=== PATIENT | female | born 1980 | race Two or more races ===

== ENCOUNTER 2022-07-06 05:21 | Emergency (ER) | payer OTHER, SELFPAY ==
[2022-07-06] VITALS (40 sets, daily range): BP systolic 115–155; BP diastolic 74–104; PULSE 55–81; RESP 12–21; TEMP 36.4; O2SAT 98–100
--- NOTE | ~2022-07-06 | XR_ITS ---
EXAMINATION: XR chest 1V portable DATE: 07/06/2022 06:07 INDICATION: Chest pain and midline back pain TECHNIQUE: frontal view of the chest was obtained. COMPARISON: None FINDINGS: The lungs are clear with no focal airspace opacities, pulmonary edema, pleural effusion or pneumothor ax. The cardiomediastinal silhouette is normal. Visualized bones and soft tissues are unremarkable. IMPRESSION: 1. Normal chest radiograph. Reviewed, dictated and finalized at location A. IMPRESSION: 1. Normal chest radiograph.
--- NOTE | 2022-07-06 05:22 | ECG_ITS ---
Measurements Intervals [place] Rate: 62 P: -24 HI: 128 QRS: 38 QRSD: 85 T: -58 QT: 420 QTc: 429 Interpretive Statements SINUS RHYTHM NONSPECIFIC T-WAVE ABNORMALITY ABNORMAL ECG NO PREVIOUS ECG AVAILABLE FOR COMPARISON Electronically Signed On 07-06-2022 16:57:33 CDT by Rah Strickland M.D.
--- NOTE | 2022-07-06 05:58 | ED.GENADULT ---
HPI - General Adult General Chief complaint: Back Pain/Injury Stated complaint: back pain arm pain Time Seen by Provider: 07/06/22 05:34 History of Present Illness HPI narrative: Is a 42-year-old female that presents the emergency department with chief complaint of. Patient reports that this evening she had sudden onset of pain just medial to her right scapula the patient states is very sharp pain reports it radiates to her right shoulder and down her right arm. Patient states that it started on ripping type pain reports its sharp reports that is worse with movement and improved with rest. The patient states she had an episode similar to this about a year ago and was told that it was reflux. Patient reports she has prior history of hypertension. Patient reports no weakness in the arms or legs denies diaphoresis denies shortness of breath. Related Data Home Medications Medication Instructions Recorded Confirmed lisinopril 10 mg tablet 10 mg PO DAILY 07/06/22 07/06/22 Allergies Allergy/AdvReac Type Severity Reaction Status Date / Time No Known Allergies Allergy Verified 07/06/22 05:30 Review of Systems Review of Systems: A 10 system review of systems was completed on the patient and is negative except for what is stated in the HPI. Nursing and ancillary documentation was reviewed. PMFSH Comments Patient reports history of hypertension and an episode of reflux Social history the patient denies illicit drug use Exam Narrative: GENERAL: Well-appearing, well-nourished, and in moderate pain distress. HEAD: Normocephalic, atraumatic. EYES: PERRLA and EOMI. ENT: Nares clear, no rhinorrhea or epistaxis. Mucous membranes moist. NECK: Supple. CHEST: Clear to auscultation. No respiratory distress. Back: There is tenderness to the right upper back medial to the right scapula. HEART: Regular rate and rhythm. No murmur heard. Normal peripheral pulses. ABDOMEN: Soft, nontender, nondistended, normal active bowel sounds. EXTREMITIES: Normal range of motion. No edema. SKIN: Warm, dry, no rash. NEURO: No focal deficits. Alert and oriented x3. PSYCH: Normal mood and affect. Course Course Emergency Course: EKG is sinus rhythm with a rate of [address] elevation or ST depression Vital Signs Vital signs: Vital Signs Temperature 97.5 F L 07/06/22 05:24 Pulse Rate 64 07/06/22 05:24 Respiratory Rate 12 07/06/22 05:24 Blood Pressure 155/92 H 07/06/22 05:24 Pulse Oximetry 100 07/06/22 05:24 Oxygen Delivery Room Air 07/06/22 05:24 Temperature 97.5 F L 07/06/22 05:24 Pulse Rate 61 07/06/22 12:01 Respiratory Rate 17 07/06/22 12:01 Blood Pressure 132/88 07/06/22 12:00 Pulse Oximetry 98 07/06/22 12:00 Oxygen Delivery Room Air 07/06/22 05:24 Medical Decision Making Vital Signs Vital Signs: Vital Signs Temperature 97.5 F L 07/06/22 05:24 Pulse Rate 64 07/06/22 05:24 Respiratory Rate 12 07/06/22 05:24 Blood Pressure 155/92 H 07/06/22 05:24 Pulse Oximetry 100 07/06/22 05:24 Oxygen Delivery Room Air 07/06/22 05:24 Temperature 97.5 F L 07/06/22 05:24 Pulse Rate 61 07/06/22 12:01 Respiratory Rate 17 07/06/22 12:01 Blood Pressure 132/88 07/06/22 12:00 Pulse Oximetry 98 07/06/22 12:00 Oxygen Delivery Room Air 07/06/22 05:24 Lab Data Result diagrams: 07/06/22 06:39 07/06/22 06:39 Labs: Lab Results 07/06/22 07/06/22 07/06/22 Range/Units 06:39 06:39 06:39 WBC 8.2 (4.5-10.0) K/mm3 RBC 4.22 (4.2-5.4) M/mm3 Hgb 7.1 L (12.0-15.0) g/dL Hct 27.2 L (37.0-47.0) % MCV 64.5 L (80-100) fl MCH 16.8 L (26-34) pg MCHC 26.1 L (32-36) g/dl RDW 21.3 H (11.5-14.5) % Plt Count 316 (150-375) k/mm3 MPV 10.7 H (7.4-10.4) fl Immature Gran % (Auto) 0.2 (0-0.5) % Neut % (Auto) 64.9 (45.5-73.1) % Lymph % (Auto) 26.9 (18.3-44.2) % [place] % (Auto) 6.4 (2.6-8.
[2022-07-06] MEDS: BELLADONNA ALK/PHENOB ELIX 10 ML, MAG HYDROX/ALUMINUM HYD/SIMETH 30 ML, LIDOCAINE HCL 2... PO (06:24)
[2022-07-06] MEDS: ONDANSETRON INJ 4 MG/2 ML VIAL IV PUSH (06:25)
[2022-07-06] MEDS: ASPIRIN 81 MG CHEWABLE TABLET 324 MG PO (06:25)
--- NOTE | 2022-07-06 06:25 | PC.NURSE ---
Patient states her pain is a little better and wants to hold off on the morphine at this time.
[2022-07-06 06:49] LABS: Basophils Absolute Auto 0.1 K/mm3 (0.0-0.1); Basophils Percent Auto 0.6 % (0.2-1.2); Eosinophils Absolute Auto 0.1 K/mm3 (0-0.3); Hematocrit 27.2 % (37.0-47.0); Hemoglobin 7.1 g/dL (12.0-15.0); Immature Granulocyte Absolute 0.02 K/mm3 (0.00-0.031); Immature Granulocyte Percent A 0.2 % (0-0.5); Immature Platelet Fraction Pct 8.7 % (0.9-11.2); Lymphocytes Absolute Auto 2.21 K/mm3 (0.9-3.2); Lymphocytes Percent Auto 26.9 % (18.3-44.2); Mean Corpuscular HGB Conc 26.1 g/dl (32-36); Mean Corpuscular Hemoglobin 16.8 pg (26-34); Mean Corpuscular Volume 64.5 fl (80-100); Mean Platelet Volume 10.7 fl (7.4-10.4); Monocytes Absolute Auto 0.5 K/mm3 (0.1-0.6); Monocytes Percent Auto 6.4 % (2.6-8.5); Neutrophils Absolute Auto 5.3 K/mm3 (1.3-6.7); Neutrophils Percent Auto 64.9 % (45.5-73.1); Platelet Count Result 316 k/mm3 (150-375); Red Blood Count 4.22 M/mm3 (4.2-5.4); Red Cell Distribution Width 21.3 % (11.5-14.5); White Blood Count 8.2 K/mm3 (4.5-10.0)
[2022-07-06 07:00] LABS: Partial Thromboplastin Time 22.3 SECONDS (22.3-36.8); Prothrombin Time 12.8 Seconds (11.1-14.7)
[2022-07-06 07:01] LABS: Alanine Aminotransferase 19 U/L (6-35); Albumin Level 4.6 g/dL (3.5-5.1); Alkaline Phosphatase 57 U/L (38-126); Anion Gap 5 mmol/L (8-16); Aspartate Amino Transferase 41 U/L (14-36); Bilirubin,Total 0.4 mg/dL (0.2-1.3); Blood Urea Nitrogen 8 mg/dL (7-17); Calcium 9.3 mg/dL (8.4-10.2); Carbon Dioxide 22 mmol/L (22-30); Chloride 105 mmol/L (98-107); Estimated CRCL calculation 90 ml/min; Estimated Glomerular Filt Rate > 60; Glucose 100 mg/dL (65-110); Lipase 63 U/L (23-300); Potassium 4.5 mmol/L (3.4-5.0); Sodium 132 mmol/L (137-145)
[2022-07-06 07:05] LABS: NT Pro B Type Natriuretic Pept 224 pg/mL (5-100)
[2022-07-06 07:12] LABS: Troponin I < 0.012 ng/mL (0.000-0.034)
[2022-07-06 07:16] LABS: D Dimer < 0.27 ug/mL (<0.48)
[2022-07-06 07:20] LABS: Platelet Estimate Adequate (Adequate)
[2022-07-06 07:21] LABS: Anisocytosis 1+ (NORMAL); Hypochromasia 2+ (NORMAL); Ovalocytes 1+ (NORMAL); Poikilocytosis 1+ (NORMAL)
[2022-07-06 08:58] LABS: Troponin I < 0.012 ng/mL (0.000-0.034)
[2022-07-06] MEDS: fentaNYL CITRATE INJ (*CRX) 100 MCG/2 ML VIAL 50 MCG IV PUSH (10:08)
[2022-07-06] MEDS: CYCLOBENZAPRINE HCL 10 MG TABLET PO (10:08)
--- NOTE | 2022-07-06 10:51 | ECG_ITS ---
Measurements Intervals [place] Rate: 58 P: -25 [place]: 133 QRS: 31 QRSD: 89 T: -15 QT: 436 QTc: 429 Interpretive Statements SINUS BRADYCARDIA NONSPECIFIC T-WAVE ABNORMALITY COMPARED TO ECG 07/06/2022 05:22:44 NO SIGNIFICANT CHANGE Electronically Signed On 07-06-2022 17:06:57 CDT by Rah Strickland M.D.
[2022-07-06 12:36] LABS: Troponin I < 0.012 ng/mL (0.000-0.034)
== END 2022-07-06 12:41 | disposition home or self-care (01) ==
PROVIDERS: Emergency Medicine; Emergency Provider Emergency Medicine; PCP Emergency Medicine
DX: S29.012A Strain of muscle and tendon of back wall of thorax, initial encounter (principal); I10 Essential (primary) hypertension; R94.31 Abnormal electrocardiogram [ECG] [EKG]; X58.XXXA Exposure to other specified factors, initial encounter
CPT/HCPCS: 36415; 71045; 80053; 83690; 83880; 84484; 85025; 85055; 85380; 85610; 85730; 93005; 96374; 96375; 99284; A9270; J2405; J3010

== ENCOUNTER 2022-07-24 15:18 | Observation (INO) | payer OTHER, SELFPAY ==
[2022-07-24] VITALS (19 sets, daily range): BP systolic 139–175; BP diastolic 80–114; PULSE 57–91; RESP 12–20; TEMP 36.1–37.1; O2SAT 100
[2022-07-24 15:38] LABS: Basophils Absolute Auto 0.1 K/mm3 (0.0-0.1); Basophils Percent Auto 1.1 % (0.2-1.2); Eosinophils Absolute Auto 0.1 K/mm3 (0-0.3); Hematocrit 25.4 % (37.0-47.0); Immature Granulocyte Absolute 0.02 K/mm3 (0.00-0.031); Immature Granulocyte Percent A 0.3 % (0-0.5); Lymphocytes Absolute Auto 2.06 K/mm3 (0.9-3.2); Mean Corpuscular HGB Conc 25.2 g/dl (32-36); Mean Corpuscular Hemoglobin 16.9 pg (26-34); Mean Corpuscular Volume 67.2 fl (80-100); Mean Platelet Volume 9.9 fl (7.4-10.4); Monocytes Absolute Auto 0.3 K/mm3 (0.1-0.6); Monocytes Percent Auto 5.3 % (2.6-8.5); Neutrophils Absolute Auto 3.7 K/mm3 (1.3-6.7); Neutrophils Percent Auto 59.3 % (45.5-73.1); Platelet Count Result 395 k/mm3 (150-375); Red Blood Count 3.78 M/mm3 (4.2-5.4); Red Cell Distribution Width 20.7 % (11.5-14.5); White Blood Count 6.2 K/mm3 (4.5-10.0)
[2022-07-24 15:49] LABS: Partial Thromboplastin Time 28.8 SECONDS (22.3-36.8)
[2022-07-24 15:50] LABS: Alanine Aminotransferase 19 U/L (6-35); Albumin Level 4.3 g/dL (3.5-5.1); Alkaline Phosphatase 56 U/L (38-126); Anion Gap 10 mmol/L (8-16); Aspartate Amino Transferase 25 U/L (14-36); Bilirubin,Total 0.1 mg/dL (0.2-1.3); Blood Urea Nitrogen 7 mg/dL (7-17); Calcium 9.2 mg/dL (8.4-10.2); Carbon Dioxide 24 mmol/L (22-30); Chloride 105 mmol/L (98-107); Estimated CRCL calculation 90 ml/min; Estimated Glomerular Filt Rate > 60; Glucose 106 mg/dL (65-110); Potassium 3.6 mmol/L (3.4-5.0); Sodium 139 mmol/L (137-145)
[2022-07-24 16:13] LABS: Hemoglobin 6.4 g/dL (12.0-15.0)
--- NOTE | 2022-07-24 16:19 | ED.RECABL ---
HPI - Recheck/Abnormal Lab/Rx General Chief Complaint: Recheck/Abnormal Lab/Rx Stated Complaint: low hemoglobin Time Seen by Provider: 07/24/22 15:40 History of Present Illness HPI narrative: 42-year-old female presents to the emergency room today for evaluation for abnormal blood work. She has a low hemoglobin and hematocrit. She was seen here earlier in the week for right shoulder pain and had blood work done. Her hemoglobin on that day was 7.1. It has dropped down to 6.4. Patient reports that the pain she was having in her shoulder has resolved. She denies having any pain today. She denies having any weakness or dizziness. She does admit to feeling tired and she does occasionally feel short of breath with exertion. She has not had any other recent CBCs to compare to. She denies having any blood in her stool or urine. She still has menstrual cycles but says that they are normal flow and last about 5 days. Related Data Home Medications Medication Instructions Recorded Confirmed lisinopril 10 mg tablet 10 mg PO DAILY 07/06/22 07/06/22 Allergies Allergy/AdvReac Type Severity Reaction Status Date / Time No Known Allergies Allergy Verified 07/24/22 16:00 Review of Systems Review of Systems: CONSTITUTIONAL: Denies fever, chills, or sweats. reports feeling fatigued EYES: Denies visual changes, redness, or discharge. ENT: Denies rhinorrhea, congestion, sore throat, or otalgia. CARDIOVASCULAR: Denies chest pain, palpitations, or edema. RESPIRATORY: Denies cough, occasional mild shortness of breath with exertion GASTROINTESTINAL: Denies abdominal pain, nausea, vomiting, or diarrhea. reports intermittent problems with indigestion GENITOURINARY: Denies dysuria or hematuria. SKIN: Denies rash or itching. MUSCULOSKELETAL: Denies back pain, joint pain, or myalgia. NEUROLOGIC: Denies headache, numbness, dizziness, or weakness. PSYCHIATRIC: Denies anxiety or depression. [facility] Past Medical History Medical History (Updated 07/24/22 @ 17:30 by Yvonne Salmeron APRN) Hypertension Thyroid disease Surgical History Surgical History No pertinent past surgical history Social History Social History Social History: s son Exam Narrative: GENERAL: Well-appearing, well-nourished, and in no acute distress. HEAD: Normocephalic, atraumatic. EYES: PERRLA and EOMI. ENT: Nares clear, no rhinorrhea or epistaxis. Mucous membranes moist. Oropharynx without tonsillar hypertrophy exudate or other lesions. Bilateral TMs pearly menendez nonbulging NECK: Supple. No adenopathy or masses. No carotid bruits or JVD CHEST: Clear to auscultation. No respiratory distress. No wheezes rales or rhonchi HEART: Regular rate and rhythm. No murmur heard. Normal peripheral pulses. ABDOMEN: Soft, nontender, nondistended, normal active bowel sounds. EXTREMITIES: Normal range of motion. No edema. SKIN: Warm, dry, no rash. NEURO: No focal deficits. Alert and oriented x3. PSYCH: Normal mood and affect. Rectum: no blood noted with exam, no stool on glove to test for occult blood Course Course Emergency Course: 1709 Discussed with Miladys Fabian STRUCTURAL ENGINEER, accepting patient for observation admission. Will plan to consult hematology. Vital Signs Vital signs: Vital Signs Temperature 36.9 C 07/24/22 15:19 Pulse Rate 91 07/24/22 15:19 Respiratory Rate 16 07/24/22 15:19 Blood Pressure 139/80 07/24/22 15:19 Pulse Oximetry 100 07/24/22 15:19 Oxygen Delivery Room Air 07/24/22 15:19 Temperature 36.9 C 07/24/22 15:19 Pulse Rate 91 07/24/22 15:19 Respiratory Rate 16 07/24/22 15:19 Blood Pressure 139/80 07/24/22 15:19 Pulse Oximetry 100 07/24/22 15:19 Oxygen Delivery Room Air 07/24/22 15:19 MDM - Recheck/Abnormal Lab/Rx Lab Data Attestation: I reviewed the patient's lab results. Result diag
[2022-07-24 16:29] LABS: Hypochromasia 2+ (NORMAL); Ovalocytes 1+ (NORMAL); Poikilocytosis 1+ (NORMAL)
--- NOTE | 2022-07-24 17:16 | PM.IMHP ---
H&P: HPI History of Present Illness Date/Time: 07/24/22 17:16 Chief Complaint: Low hemoglobin Narrative: This is a 42-year-old female patient who came in to the emergency room for evaluation of abnormal blood work. She was told that she has a low H&H. She was here earlier in the week for right shoulder pain and had blood work done. Her hemoglobin on that day was 7.1. It dropped down to 6.4 today. The patient has been on ibuprofen and her right shoulder pain has resolved. She denies any weakness or dizziness. She does admit to feeling tired on occasion. And H occasionally short of breath with exertion. She denies having any blood loss in her stool or urine. The patient is having her menstrual cycle now but says that she is having a normal flow and that the last about 5 days. She has a history of hypertension and her blood pressure is high today 175/100. I am unsure if she took her medication today. The is at the bedside answering questions for her . The patient is being admitted for observation status on the date of service of 07/24/2022. Review of Systems Review of Systems: see hpi All systems reviewed & are unremarkable except as noted in HPI and below Constitutional: Constitutional: Reports as per HPI and Reports no additional constitutional complaints Eyes: Eyes: Reports as per HPI and Reports no additional eye complaints ENT: Reports system reviewed and no additional complaints, except as documented and Reports Normal hearing present Cardiovascular: Cardiovascular: Reports no additional cardiovascular complaints Respiratory: Respiratory: Reports no additional respiratory complaints and Reports no additional respiratory complaints Gastrointestinal: Gastrointestinal: Reports as per HPI and Reports no additional gastrointestinal complaints Musculoskeletal: Musculoskeletal: Reports no additional musculoskeletal complaints Integumentary/Breasts: Skin/Breast: Reports system reviewed and no additional complaints, except as docu and Reports as per HPI Neurologic: Reports system reviewed and no additional complaints, except as documented, Reports as per HPI and Reports Normal hearing present Psychiatric: Psychiatric: Reports no additional psychiatric complaints and Reports as per HPI Endocrine: Endocrine: Reports no additional endocrine complaints Hematologic/Lymphatic: Hematologic/Lymphatic: Reports no additional hematologic/lymphatic complaints Allergic/Immunologic: Allergic/Immunologic: Reports no additional allergic/immunologic complaints PMFSH Past Medical History Medical History Hypertension Thyroid disease Surgical History Surgical History No pertinent past surgical history Family History Family History (Updated 07/24/22 @ 19:26 by Miladys Fabian NP) Unknown No problems noted. Social History Social History (Updated 07/24/22 @ 19:27 by Miladys Fabian NP) Social History: The patient is and has 2 sons. 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 She does not use tobacco marijuana alcohol or illicit drugs. Code status full code Smoking status: Never smoker Alcohol intake: never Substance use: current Meds Home Medications and Allergies Home Medications Medication Instructions Recorded Confirmed Type ibuprofen 800 mg tablet 800 mg PO TID #30 tabs 07/06/22 Rx lisinopril 10 mg tablet 10 mg PO DAILY 07/06/22 07/06/22 History Allergies Allergy/AdvReac Type Severity Reaction Status Date / Time No Known Allergies Allergy Verified 07/24/22 16:00 Vital Signs Vital Signs - 24 hr 07/24/22 15:19 Temperature 36.9 C Pulse Rate 91 Respiratory Rate 16 Blood Pressure 139/80 Pulse Oximetry 100 Oxygen Delivery Room Air Exam Const: General: cooperative, healthy appearing, comfortable, no ac
[2022-07-24 17:34] LABS: Lactate Dehydrogenase 181 U/L (120-246)
[2022-07-24 17:35] LABS: Bilirubin,Total 0.2 mg/dL (0.2-1.3)
[2022-07-24 17:37] LABS: Immature Reticulocyte Fraction 13.9 % (3.0-15.9); Reticulocyte Hemoglobin Conten 14.7 pg (28.2-35.7); Reticulocyte Percent 1.15 % (0.7-4.3); Reticulocytes Absolute 0.04 B/L (32.2-175.7)
[2022-07-24 17:42] LABS: Transferrin 328 mg/dL (206-381)
[2022-07-24 17:57] LABS: Iron 16 ug/dL (37-170)
[2022-07-24 18:06] LABS: Percent Iron Saturation 4 % (20-50)
[2022-07-24] MEDS: SODIUM CHLORIDE 0.9% IV 250 ML 30 ML IV CONT (18:09)
[2022-07-24 18:18] LABS: SARS-CoV-2 RNA PCR Negative
[2022-07-24 18:33] LABS: Ferritin 2.52 ng/mL (6.24-137)
[2022-07-24 18:42] LABS: Folic Acid 13.7 ng/mL (2.76->20)
[2022-07-24 18:59] LABS: Free T4 Free Thyroxine Reflex 0.85 ng/dL (0.78-2.19)
--- NOTE | 2022-07-24 19:43 | PC.NURSE ---
Attempted to call report, bed not available yet.will call when bed is ready.
[2022-07-24 19:53] LABS: Total Triiodothyronine (T3) 1.06 NG/ML (0.97-1.69)
--- NOTE | 2022-07-24 21:45 | ADMGEN ---
This patient, Jude Calderon, was admitted to [facility] Surg Room 330-01. Patient/family oriented to hospital policies and general routines including ID bracelet, bed and alarms, visiting hours, pain management, procedures, bathroom and other care routines, personal items, smoking policy, room service/diet, and visiting hours. Information on how to activate the Rapid Response Team has been discussed. Patient/Family are encouraged to report perceived risks to care and to ask questions if they do not understand what they are told or what they should do.
[2022-07-24] MEDS: TUBING, BLOOD PLUM PUMP TUBING 1 EACH XX (22:00)
[2022-07-24] MEDS: hydrALAZINE HCL 20 MG/ML VIAL 10 MG IV PUSH (23:06)
[2022-07-25 00:03] VITALS: BP 147/84; PULSE 60; RESP 15; TEMP 36.7; O2SAT 100
[2022-07-25 01:03] VITALS: BP 156/99; PULSE 77; RESP 16; TEMP 36.6; O2SAT 100
[2022-07-25] MEDS: ACETAMINOPHEN 325 MG TABLET 650 MG PO ×2 (01:23→11:26)
[2022-07-25 01:24] VITALS: BP 150/89; PULSE 70; RESP 16; TEMP 36.7; O2SAT 100
[2022-07-25 06:16] LABS: Basophils Absolute Auto 0.1 K/mm3 (0.0-0.1); Basophils Percent Auto 1.1 % (0.2-1.2); Eosinophils Absolute Auto 0.1 K/mm3 (0-0.3); Eosinophils Percent Auto 1.4 % (0-4.4); Hematocrit 34.7 % (37.0-47.0); Hemoglobin 9.5 g/dL (12.0-15.0); Immature Granulocyte Absolute 0.01 K/mm3 (0.00-0.031); Immature Granulocyte Percent A 0.1 % (0-0.5); Immature Platelet Fraction Pct 7.3 % (0.9-11.2); Lymphocytes Absolute Auto 3.03 K/mm3 (0.9-3.2); Mean Corpuscular HGB Conc 27.4 g/dl (32-36); Mean Corpuscular Hemoglobin 19.9 pg (26-34); Mean Corpuscular Volume 72.6 fl (80-100); Mean Platelet Volume 10.4 fl (7.4-10.4); Monocytes Absolute Auto 0.5 K/mm3 (0.1-0.6); Monocytes Percent Auto 6.6 % (2.6-8.5); Neutrophils Absolute Auto 3.5 K/mm3 (1.3-6.7); Neutrophils Percent Auto 48.8 % (45.5-73.1); Platelet Count Result 366 k/mm3 (150-375); Red Blood Count 4.78 M/mm3 (4.2-5.4); Red Cell Distribution Width 24.4 % (11.5-14.5); White Blood Count 7.2 K/mm3 (4.5-10.0)
[2022-07-25 06:24] LABS: Lactic Acid Reflex 1.3 mmol/L (0.7-2.0)
[2022-07-25 06:27] LABS: Alanine Aminotransferase 18 U/L (6-35); Albumin Level 3.9 g/dL (3.5-5.1); Alkaline Phosphatase 49 U/L (38-126); Anion Gap 9 mmol/L (8-16); Aspartate Amino Transferase 27 U/L (14-36); Bilirubin,Total 0.4 mg/dL (0.2-1.3); Blood Urea Nitrogen 6 mg/dL (7-17); Calcium 9.1 mg/dL (8.4-10.2); Carbon Dioxide 22 mmol/L (22-30); Chloride 106 mmol/L (98-107); Estimated CRCL calculation 104 ml/min; Estimated Glomerular Filt Rate > 60; Glucose 92 mg/dL (65-110); Magnesium 2.1 mg/dL (1.6-2.3); Potassium 3.4 mmol/L (3.4-5.0); Sodium 137 mmol/L (137-145)
[2022-07-25 07:27] LABS: Anisocytosis 1+ (NORMAL); Hypochromasia 1+ (NORMAL); Platelet Estimate Adequate (Adequate); Poikilocytosis 1+ (NORMAL)
[2022-07-25] MEDS: lisinopriL 10 MG TABLET PO (08:42)
[2022-07-25] MEDS: THYROID 60 MG TABLET PO (08:42)
[2022-07-25 10:16] VITALS: O2SAT 98
[2022-07-25] MEDS: hydrALAZINE HCL 20 MG/ML VIAL 10 MG IV PUSH (11:26)
[2022-07-25 16:29] VITALS: BP 130/79; PULSE 71; RESP 18; TEMP 36.3; O2SAT 100
--- NOTE | 2022-07-25 16:48 | PM.IMPN ---
Progress Note: A&P Assessment and Plan (1) Thyroid disease: Code(s): E07.9 - Disorder of thyroid, unspecified Status: Acute Assessment and Plan: Continue home thyroid medication, TSH was slightly high, free T4 and free T3 pending (2) Hypertension: Code(s): I10 - Essential (primary) hypertension Status: Acute Assessment and Plan: Stable on lisinopril (3) Iron deficiency anemia: Code(s): D50.9 - Iron deficiency anemia, unspecified Status: Acute Assessment and Plan: Patient was transfused 2 units of packed red blood cells in the ER. Hemoglobin went from 6.4 up to 9.5. Fecal occult blood test pending, appreciate Hematology consultation, iron severely low, would consider IV iron infusions if okay with Hematology. Suspected etiology is dietary deficiency as patient is a vegetarian. Will start oral ferrous sulfate, would recommend patient take every other day for life. Patient may also benefit from an outpatient gynecology workup for possible fibroids if she continues to experience menorrhagia. Plan DVT prophylaxis with SCDs GI prophylaxis with PPI Code status full code Subjective Date/time seen: 07/25/22 16:48 Interval history: Patient states she was diagnosed with anemia several years ago and is a vegetarian. She was told she needed to take vitamins, however, these give her cramps in her legs so she discontinued those. Up until a few months ago, she states she had very heavy periods but these have now alleviated to 3-4 days of a much spiral runner flow than she had previously. No overnight events noted. No chest pain or shortness of breath. No nausea, vomiting or diarrhea. No fevers or chills. Review of Systems Review of Systems: 12 point review of systems was assessed and was negative except as noted in the HPI Exam Narrative: General: No acute distress, alert and oriented per baseline HEENT: Atraumatic, normocephalic, mucous membranes moist CV: Regular rate and rhythm, S1, S2 Lungs: Clear to auscultation bilaterally, no rales or crackles noted, no wheezes, good air entry Abdomen: Soft, nontender, nondistended Extremities: Normal to inspection Skin: No rashes noted, no lesions or wounds seen Psych: Euthymic, normal affect Objective Data Vital Signs Vital Signs: Vital Signs - 24 hr 07/24/22 18:26 07/24/22 18:45 07/24/22 18:23 Temperature 98.6 F 98.7 F Pulse Rate 66 70 69 Respiratory Rate 15 15 16 Blood Pressure 162/113 H 175/100 H 162/113 H Pulse Oximetry 100 100 100 Oxygen Delivery 07/24/22 18:46 07/24/22 19:23 07/24/22 19:45 Temperature 98.1 F Pulse Rate 69 84 72 Respiratory Rate 12 20 18 Blood Pressure 175/100 H 156/96 H 151/100 H Pulse Oximetry 100 100 100 Oxygen Delivery 07/24/22 20:23 07/24/22 20:45 07/24/22 21:45 Temperature 98.5 F 97.8 F Pulse Rate 85 70 60 Respiratory Rate 18 16 17 Blood Pressure 174/114 H 165/103 H 152/90 H Pulse Oximetry 100 100 100 Oxygen Delivery 07/24/22 22:02 07/24/22 22:47 07/24/22 22:58 Temperature 97.8 F 97 F L Pulse Rate 57 L 59 L Respiratory Rate 18 18 Blood Pressure 159/96 H 148/99 H Pulse Oximetry 100 100 Oxygen Delivery Room Air 07/24/22 23:03 07/24/22 22:00 07/25/22 00:03 Temperature 97.8 F 97 F L 98.1 F Pulse Rate 63 61 60 Respiratory Rate 17 17 15 Blood Pressure 156/96 H 160/96 H 147/84 H Pulse Oximetry 100 100 100 Oxygen Delivery 07/25/22 01:03 07/25/22 01:24 07/25/22 10:16 Temperature 97.8 F 98.1 F Pulse Rate 77 70 Respiratory Rate 16 16 Blood Pressure 156/99 H 150/89 H Pulse Oximetry 100 100 98 Oxygen Delivery Room Air 07/25/22 08:40 07/25/22 16:29 Temperature 97.3 F L Pulse Rate 71 Respiratory Rate 18 Blood Pressure 130/79 Pulse Oximetry 100 Oxygen Delivery Room Air Intake/Output Intake/Output: Intake & Output 07/22/22 07/23/22 07/24/22 07/25/22 23:59 23:59 23:59 23:59 Intake Total 350 1340 Output To
[2022-07-25 22:00] VITALS: BP 140/79; PULSE 68; RESP 17; TEMP 36.2; O2SAT 97
[2022-07-26 06:00] VITALS: BP 145/85; PULSE 66; RESP 18; TEMP 36.2; O2SAT 98
[2022-07-26] MEDS: lisinopriL 10 MG TABLET PO ×2 (09:16→17:02)
[2022-07-26] MEDS: FERROUS SULFATE 324 MG TABLET PO (09:16)
[2022-07-26] MEDS: THYROID 60 MG TABLET PO (09:16)
[2022-07-26 10:42] LABS: Basophils Percent Auto 0.7 % (0.2-1.2); Eosinophils Absolute Auto 0.1 K/mm3 (0-0.3); Eosinophils Percent Auto 1.5 % (0-4.4); Hematocrit 35.3 % (37.0-47.0); Hemoglobin 9.8 g/dL (12.0-15.0); Immature Granulocyte Absolute 0.01 K/mm3 (0.00-0.031); Immature Granulocyte Percent A 0.2 % (0-0.5); Lymphocytes Absolute Auto 2.06 K/mm3 (0.9-3.2); Lymphocytes Percent Auto 34.5 % (18.3-44.2); Mean Corpuscular HGB Conc 27.8 g/dl (32-36); Mean Corpuscular Hemoglobin 19.8 pg (26-34); Mean Corpuscular Volume 71.3 fl (80-100); Mean Platelet Volume 9.9 fl (7.4-10.4); Monocytes Absolute Auto 0.4 K/mm3 (0.1-0.6); Monocytes Percent Auto 6.2 % (2.6-8.5); Neutrophils Absolute Auto 3.4 K/mm3 (1.3-6.7); Neutrophils Percent Auto 56.9 % (45.5-73.1); Platelet Count Result 352 k/mm3 (150-375); Red Blood Count 4.95 M/mm3 (4.2-5.4); Red Cell Distribution Width 24.5 % (11.5-14.5)
[2022-07-26 11:01] LABS: Alanine Aminotransferase 18 U/L (6-35); Albumin Level 4.2 g/dL (3.5-5.1); Alkaline Phosphatase 48 U/L (38-126); Anion Gap 13 mmol/L (8-16); Aspartate Amino Transferase 24 U/L (14-36); Bilirubin,Total 0.5 mg/dL (0.2-1.3); Blood Urea Nitrogen 6 mg/dL (7-17); Calcium 9.1 mg/dL (8.4-10.2); Carbon Dioxide 22 mmol/L (22-30); Chloride 104 mmol/L (98-107); Estimated CRCL calculation 90 ml/min; Estimated Glomerular Filt Rate > 60; Glucose 89 mg/dL (65-110); Potassium 3.4 mmol/L (3.4-5.0); Sodium 139 mmol/L (137-145)
[2022-07-26] MEDS: SENNA/DOCUSATE SODIUM TABLET 1 TAB PO (13:39)
[2022-07-26 13:49] VITALS: BP 166/91; PULSE 79; RESP 20; TEMP 36.8; O2SAT 100
--- NOTE | 2022-07-26 17:02 | PM.IMPN ---
Progress Note: A&P Assessment and Plan (1) Thyroid disease: Code(s): E07.9 - Disorder of thyroid, unspecified Status: Acute Assessment and Plan: Continue home thyroid medication, TSH was slightly high, both free T4 and free T3 were within normal limits, continue current dose, recheck in 4-6 weeks (2) Hypertension: Code(s): I10 - Essential (primary) hypertension Status: Acute Assessment and Plan: Uncontrolled on lisinopril 10 mg, increase to 20 mg daily (3) Iron deficiency anemia: Code(s): D50.9 - Iron deficiency anemia, unspecified Status: Acute Assessment and Plan: Patient was transfused 2 units of packed red blood cells in the ER. Hemoglobin went from 6.4 up to 9.5. Fecal occult blood test pending, appreciate Hematology consultation, iron severely low, would consider IV iron infusions if okay with Hematology. Suspected etiology is dietary deficiency as patient is a vegetarian. Will start oral ferrous sulfate, would recommend patient take every other day for life. Patient may also benefit from an outpatient gynecology workup for possible fibroids if she continues to experience menorrhagia. 07/26: Hemoglobin stable at 9.8, awaiting fecal occult blood test and Hematology consult tomorrow Plan DVT prophylaxis with SCDs GI prophylaxis with PPI Code status full code Subjective Date/time seen: 07/26/22 17:02 Interval history: Patient has not had a bowel movement in a few days. She does admit to feeling generally weak when she tries to stand up. No overnight events noted. No chest pain or shortness of breath. No nausea, vomiting or diarrhea. No fevers or chills. Review of Systems Review of Systems: All systems reviewed & are unremarkable except as noted in HPI and below Exam Narrative: General: No acute distress, alert and oriented per baseline HEENT: Atraumatic, normocephalic, mucous membranes moist CV: Regular rate and rhythm, S1, S2 Lungs: Clear to auscultation bilaterally, no rales or crackles noted, no wheezes, good air entry Abdomen: Soft, nontender, nondistended Extremities: Normal to inspection Skin: No rashes noted, no lesions or wounds seen Psych: Euthymic, normal affect Objective Data Vital Signs Vital Signs: Vital Signs - 24 hr 07/25/22 20:00 07/25/22 22:00 07/26/22 06:00 Temperature 97.2 F L 97.2 F L Pulse Rate 68 66 Respiratory Rate 17 18 Blood Pressure 140/79 145/85 H Pulse Oximetry 97 98 Oxygen Delivery Room Air 07/26/22 09:15 07/26/22 13:49 Temperature 98.2 F Pulse Rate 79 Respiratory Rate 20 Blood Pressure 166/91 H Pulse Oximetry 100 Oxygen Delivery Room Air Intake/Output Intake/Output: Intake & Output 07/23/22 07/24/22 07/25/22 07/26/22 23:59 23:59 23:59 23:59 Intake Total 350 1690 790 Output Total 3200 Balance 350 -1510 790 Meds/Results Medications: Active Medications Generic Name Dose Route Start Last Admin Trade Name Freq PRN Reason Stop Dose Admin Acetaminophen 650 mg 07/25/22 01:10 07/25/22 11:26 Acetaminophen 325 Mg Tablet PO 650 mg Q4H PRN Administration Mild Pain (1-3) or Fever Ferrous Sulfate 324 mg 07/26/22 08:00 07/26/22 09:16 Ferrous Sulfate 324 Mg Tablet PO 324 mg DAILY@0800 MECHE Administration Hydralazine HCl 10 mg 07/24/22 19:32 07/25/22 11:26 Hydralazine Hcl 20 Mg/Ml Vial IV PUSH 10 mg Q8H PRN Administration Blood Pressure - High Lisinopril 20 mg 07/27/22 09:00 Lisinopril 20 Mg Tablet PO DAILY MECHE Senna/Docusate Sodium 1 tab 07/26/22 12:30 07/26/22 13:39 Senna/Docusate Sodium Tablet PO 1 tab HS MECHE Administration Thyroid 60 mg 07/25/22 09:00 07/26/22 09:16 Thyroid 60 Mg Tablet PO 60 mg DAILY MECHE Administration Labs Labs: Laboratory Results - last 24 hr 07/26/22 07/26/22 10:29 10:29 WBC 6.0 RBC 4.95 Hgb 9.8 L Hct 35.3 L MCV 71.3 L MCH 19.8 L MCH
[2022-07-26 17:26] LABS: IFOB Positive Control Positive; Immunochemical Fecal Occult Bl Negative (N)
[2022-07-28 14:40] LABS: Haptoglobin 62 mg/dL (43-212)
[2022-07-28 17:20] LABS: Alpha 1 Globulin 0.3 g/dL (0.2-0.3); Alpha 2 Globulin 0.6 g/dL (0.5-0.9); Beta 1 Globulin 0.5 g/dL (0.4-0.6); Gamma Globulin 1.1 g/dL (0.8-1.7); Protein, Total 6.6 g/dL (6.1-8.1)
--- NOTE | 2022-07-28 19:34 | PM.DS ---
DS: Admitting Diagnosis Discharge Date 07/26/22 Admitting Diagnosis Anemia DS: Discharge Diagnosis Discharge Diagnosis (1) Thyroid disease: Code(s): E07.9 - Disorder of thyroid, unspecified Status: Acute Assessment and Plan: Continue home thyroid medication, TSH was slightly high, both free T4 and free T3 were within normal limits, continue current dose, recheck in 4-6 weeks (2) Hypertension: Code(s): I10 - Essential (primary) hypertension Status: Acute Assessment and Plan: Uncontrolled on lisinopril 10 mg, increase to 20 mg daily (3) Iron deficiency anemia: Code(s): D50.9 - Iron deficiency anemia, unspecified Status: Acute Assessment and Plan: Patient was transfused 2 units of packed red blood cells in the ER. Hemoglobin went from 6.4 up to 9.5. Fecal occult blood test pending, appreciate Hematology consultation, iron severely low, would consider IV iron infusions if okay with Hematology. Suspected etiology is dietary deficiency as patient is a vegetarian. Will start oral ferrous sulfate, would recommend patient take every other day for life. Patient may also benefit from an outpatient gynecology workup for possible fibroids if she continues to experience menorrhagia. 07/26: Hemoglobin stable at 9.8, awaiting fecal occult blood test and Hematology consult tomorrow Plan DVT prophylaxis with SCDs GI prophylaxis with PPI Code status full code DS: Summary Hospital Course Hospital Course: 42-year-old female with past medical history of anemia is presenting with incidental finding of low hemoglobin down to 6.4. She was transfused in the ER and admitted for further care. She stated she has had menorrhagia via intermittently over the last few years. Additionally she is a vegetarian and was told in the past that she had iron deficiency anemia but was unable to tolerate the supplements. She does admit to lower extremity restlessness that she thought was made worse by the supplementation of iron. Patient's fecal occult blood test was negative. Iron studies came back severely low. All other workup was essentially benign. Therefore she was discharged in good condition on oral iron supplementation and close outpatient follow-up by PCP. May need gynecological workup for possible fibroids if she continues to experience menorrhagia. Time Spent with Patient Time attestation: Total time spent providing and/or coordinating discharge services: Exam Narrative: General: No acute distress, alert and oriented per baseline HEENT: Atraumatic, normocephalic, mucous membranes moist CV: Regular rate and rhythm, S1, S2 Lungs: Clear to auscultation bilaterally, no rales or crackles noted, no wheezes, good air entry Abdomen: Soft, nontender, nondistended Extremities: Normal to inspection Skin: No rashes noted, no lesions or wounds seen Psych: Euthymic, normal affect DS: Data Data Completed and Pending Labs on day of discharge: Labs from last 24 hours 07/24/22 07/24/22 17:59 17:59 Haptoglobin 62 Total Protein 6.6 Albumin 4.0 Ofqyp-9-Pwnqaudxp 0.3 Xxite-1-Hgovddazq 0.6 Retj-8-Dclzwlyz 0.5 Awxm-0-Bgvwkfyv 0.3 Gamma Globulins 1.1 Abnorm Protein Band 1 see below Abnorm Protein Band 3 Not Reportable PEP Interpretation see below Discharge Plan Discharge Consulting providers: Esa Cifuentes ; Miladys Fabian Discharging Clinician: Ruth Weir Patient Disposition: Home, Self-Care Activity: unlimited and as tolerated Diet: as tolerated Patient Instructions: Antibiotic Form, Pain Management (DC) Stand Alone Forms: General Discharge Information Follow-up/Referrals: Kaila,Giovanni Jean MD [Primary Care Provider] - Discharge Medications: New lisinopril 20 mg Tablet 20 mg PO DAILY 30 Days Qty: 30 0RF sennosides-docusate sodium [Senokot-S] 8.6-50 mg Tablet 1 tab PO HS 30 Days Qty: 30 0RF ferrous sulfat
--- NOTE | 2022-08-04 16:45 | PDONCCN ---
HPI - Date of Consult Date/Time: 08/04/22 16:45 Requesting Physician: Ruth Weir DO Primary Care Provider: Giovanni Bright, - Consult Narrative Reason for consult: Anemia Narrative: Jude Calderon is a 42 year old female Patient was instructed to F/U as outpatient. Review of Systems - Neurologic Reports system reviewed and no additional complaints, except as documented, Reports hearing normal [facility] Medical History: Medical History (Last Reviewed 07/24/22 @ 19:26 by Miladys Fabian NP) Hypertension Thyroid disease Surgical History: Surgical History (Last Reviewed 07/24/22 @ 19:26 by Miladys Fabian NP) No pertinent past surgical history Family History: Family History (Last Updated 07/24/22 @ 21:46 by Mouna Greenwood RN) Unknown No problems noted. Father Hypertension Mother Hypertension Diabetes mellitus - Social History Social History: Social History (Last Updated 07/24/22 @ 19:27 by Miladys Fabian NP) Alcohol Use: Alcohol intake: never Substance Use: Substance use: current Others: Spiritual care concerns: No Smoking Status: Smoking status: Never smoker Exam - Lab Results Laboratory Last Values WBC 6.0 K/mm3 (4.5-10.0) 07/26/22 10:29 RBC 4.95 M/mm3 (4.2-5.4) 07/26/22 10:29 Hgb 9.8 g/dL (12.0-15.0) L 07/26/22 10:29 Hct 35.3 % (37.0-47.0) L 07/26/22 10:29 MCV 71.3 fl (80-100) L 07/26/22 10:29 MCH 19.8 pg (26-34) L 07/26/22 10:29 MCHC 27.8 g/dl (32-36) L 07/26/22 10:29 RDW 24.5 % (11.5-14.5) H 07/26/22 10:29 Plt Count 352 k/mm3 (150-375) 07/26/22 10:29 MPV 9.9 fl (7.4-10.4) 07/26/22 10:29 Immature Gran % (Auto) 0.2 % (0-0.5) 07/26/22 10: Neut % (Auto) 56.9 % (45.5-73.1) 07/26/22 10: Lymph % (Auto) 34.5 % (18.3-44.2) 07/26/22 10: Harvey % (Auto) 6.2 % (2.6-8.5) 07/26/22 10: Eos % (Auto) 1.5 % (0-4.4) 07/26/22 10: Baso % (Auto) 0.7 % (0.2-1.2) 07/26/22 10: Lymph # (Auto) 2.06 K/mm3 (0.9-3.2) 07/26/22 10: Harvey # (Auto) 0.4 K/mm3 (0.1-0.6) 07/26/22 10: Eos # (Auto) 0.1 K/mm3 (0-0.3) 07/26/22 10: Baso # (Auto) 0.0 K/mm3 (0.0-0.1) 07/26/22 10: Abs Immat Gran (auto) 0.01 K/mm3 (0.00-0.031) 07/26/22 10: Absolute Neuts (auto) 3.4 K/mm3 (1.3-6.7) 07/26/22 10: Absolute Nucleated RBC 0.0 K/mm3 (0.0-0.012) 07/26/22 10: Nucleated RBC % 0.0 % (0.0-0.2) 07/26/22 10:29 Platelet Estimate Adequate (Adequate) 07/25/22 05:58 % Immature Plt Fraction 7.3 % (0.9-11.2) 07/25/22 05:58 Hypochromasia 1+ (NORMAL) 07/25/22 05:58 Poikilocytosis 1+ (NORMAL) 07/25/22 05:58 Anisocytosis 1+ (NORMAL) 07/25/22 05:58 Ovalocytes 1+ (NORMAL) 07/24/22 15:28 Schistocytes Not Reportable 07/25/22 05:58 Absolute Retic 0.04 B/L (32.2-175.7) L 07/24/22 15:27 Percent Retic 1.15 % (0.7-4.3) 07/24/22 15:27 Immature Retic Fraction 13.9 % (3.0-15.9) 07/24/22 15:27 Retic Hgb Content 14.7 pg (28.2-35.7) L 07/24/22 15:27 Haptoglobin 62 mg/dL (43-212) 07/24/22 17:59 PT 13.0 Seconds (11.1-14.7) 07/24/22 15:28 INR 1.0 07/24/22 15:28 APTT 28.8 SECONDS (22.3-36.8) 07/24/22 15:28 Sodium 139 mmol/L (137-145) 07/26/22 10:29 Potassium 3.4 mmol/L (3.4-5.0) 07/26/22 10:29 Chloride 104 mmol/L (98-107) 07/26/22 10:29 Carbon Dioxide 22 mmol/L (22-30) 07/26/22 10:29 Anion Gap 13 mmol/L (8-16) 07/26/22 10:29 BUN 6 mg/dL (7-17) L 07/26/22 10:29 Creatinine 0.70 mg/dL (0.7-1.0) 07/26/22 10:29 Estim Creat Clear Calc 90 ml/min 07/26/22 10:29 Estimated GFR > 60 (59-) 07/26/22 10:29 Glucose 89 mg/dL (65-110) 07/26/22 10:29 Lactic Acid 1.3 mmol/L (0.7-2.0) 07/25/22 05:58 Calcium 9.1 mg
== END 2022-07-26 18:15 | disposition home or self-care (01) ==
LOC: ANHED 17:30 → ANH3MEDSUR 21:05
PROVIDERS: Emergency Medicine; Nurse Practitioner; Admitting Provider Internal Medicine; Emergency Provider Nurse Practitioner Family; PCP Internal Medicine; Visit Provider Student in an Organized Health Care Education/Training Program
DX: D50.9 Iron deficiency anemia, unspecified (principal); E07.9 Disorder of thyroid, unspecified; I10 Essential (primary) hypertension; N92.0 Excessive and frequent menstruation with regular cycle; G25.81 Restless legs syndrome; Z20.822 Contact with and (suspected) exposure to COVID-19; Z79.1 Long term (current) use of non-steroidal anti-inflammatories (NSAID); Z79.899 Other long term (current) drug therapy
CPT/HCPCS: 36415; 36430; 80053; 82247; 82248; 82274; 82570; 82607; 82728; 82746; 83010; 83540; 83550; 83605; 83615; 83735; 84155; 84156; 84165; 84166; 84238; 84439; 84443; 84466; 84480; 85025; 85046; 85055; 85610; 85730; 86850; 86880; 86900; 86901; 86920; 96361; 96374; 99285; A9270; C9803; G0378; J0360; J7050; P9016; U0003; U0005

== ENCOUNTER 2025-03-15 10:05 | Emergency (ER) | payer OTHER, SELFPAY ==
[2025-03-15] VITALS (12 sets, daily range): BP systolic 141–165; BP diastolic 90–121; PULSE 64–88; RESP 11–19; TEMP 36.8; O2SAT 99–100
--- NOTE | ~2025-03-15 | US_ITS ---
US pelvic complete w TV Ordering provider: Cecille Raman PA-C History: . abnml bleeding . Comparison: None. Technique: Transabdominal and endovaginal ultrasound of the pelvis (Doppler ultrasound interrogation techniques used as needed for this exam.) FINDINGS: CERVIX: Normal. UTERUS: Measures 13.1x 8.1x 7.5 cm in length which is within normal limits and is anteverted. Fibroi ds are seen measuring 4.7 x 3.2 x 4.7 cm and 2.2 x2.9 x 3 cm. IUD is not well demonstrated. ENDOMETRIUM: Normal in thickness measuring 11 mm. No endometrial masses, cysts or fluid. CUL DE SAC: Minimal free fluid seen around the uterus. RIGHT OVARY: Not demonstrated. LEFT OVARY: Normal in size measuring 2.3x 2.6x 2.2 cm. Normal echotexture. Doppler vascular flow pres ent. Simple cyst measuring 1.2 x 1.3 x 1.8 cm. ADNEXA: Normal. No mass. IMPRESSION: Uterine fibroids. Simple cyst in the left ovary. Otherwise, normal pelvic ultrasound. Reviewed, dictated and finalized at location A. IMPRESSION: Uterine fibroids. Simple cyst in the left ovary. Otherwise, normal pelvic ultra sound.
--- OUTSIDE RECORDS SUMMARY | 2025-03-15 10:20 | XMS_ITS | Clinical Summary ---
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 Name Role Phone Unavailable Primary Care Provider Unavailabl e Encounters Date Type Department Care Team Description 02/27/2025 External Device Data ST[facility] ABSTRACTION Provider, Abstract 02/27/2025 External Device Data [facility] ABSTRACTION Provider, Abstract 01/24/2025 External Device Data [facility] ABSTRACTION Provider, Abstract 01/13/2025 External Device Data [facility] ABSTRACTION Provider, Abstract 01/12/2025 External Device Data [facility] ABSTRACTION Provider, Abstract 01/10/2025 External Device Data ST[facility] ABSTRACTION Provider, Abstract 12/26/2024 External Device Data STL ABSTRACTION Provider, Abstract from Last 3 Months Social History Tobacco Use Types Packs/Day Years Used Date Smoking Tobacco: Never Assessed Comments Unknown Sex and Gender Information Value Date Recorded Sex Assigned at Not on file 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 Gender Identity Not on file Sexual Orientation Not on file Plan of Treatment Health Maintenance Due Date Last Done Comments DTAP/TDAP/TD VACCINES (1 - Tdap) 1998 HEPATITIS B VACCINES (1 of 3 - 19+ 3-dose series) 1998 HPV/Cotest (21-29) 2000 CERVICAL CANCER SCREENING 2009 HPV/Cotest (30-65) 2009 PAP SMEAR 2009 COLORECTAL SCREENING 2024 Colorectal Cancer Screening 2024 FIT-DNA Q 3 years 2024 FIT/FOBT Q 1 year 2024 Flex Sig/CT Colonography Q 5 years 2024 INFLUENZA VACCINE (#1) 2024 BREAST CANCER SCREENING 06/20/2025 06/20/20 24, 08/06/2022, 08/06/2022, Additional history exists HPV VACCINES Aged Out No longer eligi ble based on patient's age to complete this topic Procedures Procedure Name Priority Date/Time Associated Diagnosis Comments MAMMO 3D JENNIFER SCREEN BILAT W OR WO CAD Routine 06/20/2024 2:14 PM CDT Encounter for screening mammogram for malignant neoplasm of breast from Last 3 Months or Most Recently Relevant to Health Maintenance Results * MAMMO 3D JENNIFER SCREEN BILAT W OR WO CAD (06/20/2024 2:14 PM CDT) Anatomical Region Laterality Modality Breast Bilateral Mammography 06/20/2024 2:15 PM CDT Impressions 06/20/2024 2:22 PM CDT IMPRESSION: BI-RADS Category 2, benign mammogram. Recommend yearly bilateral screening mammogram. Narrative 06/20/2024 2:22 PM CDT EXAM: MAMMO 3D JENNIFER SCREEN BILAT W OR WO CAD DATE: 06/20/2024 CLINICAL HISTORY: Screening in an asymptomatic patient with no personal or family history of breast cancer TECHNIQUE: Bilateral full field digital mammography and digital tomosynthesis were performed in the CC and MLO projections. Comparison was made to prior bilateral mammograms performed August 06, 2022 and October 29, 2020 and bilateral breast ultrasounds performed October 29, 2020. CAD was utilized. FINDINGS: The breast parenchyma is heterogenously dense, which limits evaluation for masses. The parenchymal pattern is unchanged compared to the prior exams. A few scattered bilateral dense breasts masses are well-marginated on the tomosynthesis images and unchanged. There is no new suspicious asymmetry or mass, area of architectural distortion or suspicious microcalcification. us Giovanni Bright MD MAMMO ORDERABLES Final Result from Last 3 Months or Most Recently Relevant to Health [place] [address] [facility] [id number]
--- OUTSIDE RECORDS SUMMARY | 2025-03-15 10:20 | XMS_ITS | Clinical Summary ---
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 12/28/2022 Menorrhagia with irregular cycle 12/28/2022 Social History Tobacco Use Types Packs/Day Years Used Date Smoking Tobacco: Never Assessed Comments Unknown Sex and Gender Information Value Date Recorded Sex Assigned at Not on file Legal Sex Female 1:44 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 Gender Identity Not on file Sexual Orientation Not on file Last Filed Vital Signs Vital Sign Reading Time Taken Comments Blood Pressure 164/99 01/06/2023 10:51 AM LEAK INSPECTOR Pulse 74 01/06/2023 10:51 AM LEAK INSPECTOR Temperature 36.6 C (97.9 F) 01/06/2023 10:51 AM LEAK INSPECTOR Respiratory Rate 16 01/06/2023 10:51 AM LEAK INSPECTOR Oxygen Saturation 99% 01/06/2023 10:51 AM LEAK INSPECTOR Inhaled Oxygen Concentration - - Weight - - Height - - Body Mass Index - - Plan of Treatment Health Maintenance Due Date Last Done Comments Hepatitis C Virus (HCV) Screening 1979 Mammogram 1979 TdaP Immunization 1979 Hepatitis B Immunization (1 of 3 - 19+ 3-dose series) 1998 Pap Smear 2000 Cervical Cancer Screening (CCS) 2009 HPV/Cotest 2009 Discussion re Starting/Frequency of Mammograms 2019 Colonoscopy 2024 Colorectal Cancer Screening 2024 Influenza Immunization (#1) 2024 SARS-COV-2 Immunization ( season) 2024 02/07/2021, 01/17/2021 Respiratory Syncytial Virus (RSV) Immunization (Adult) (1 - 1-dose 75+ series) 2054 Meningococcal Immunization (ACWY) Aged Out No longer eligible b ased on patient's age to complete this topic Pneumococcal Immunization Combined Aged Out No longer eligible b ased on patient's age to complete this topic Rotavirus Immunization Aged Out No lo nger eligible based on patient's age to complete this topic Care Teams Nuclear Process Engineer Relationship Specialty Start Date End Date Giovanni Bright MD PCP - General Internal Medicine 12/28/22
--- OUTSIDE RECORDS SUMMARY | 2025-03-15 10:32 | XMS_ITS | Data Portability ---
Author Organization [place] [employer], Main Office Address [address] [place] [address] Assessment No assessment recorded. Plan of Treatment Reminders Order Date Submit Date Provider Last Modified By Organization Details Last Modified Time Details Appointments Any 15 2024 03:15P Becki Bright MD Not available Not available Not available Lab CMP, serum or plasma 2024 025 [facility], [address] [place], [address], 03/06/2025 19:11:20 CBC w/ auto diff 2024 025 [facility], [address] [place], [address], 03/06/2025 19:06:46 iron + TIBC + ferritin, serum 2024 025 [email or web address] [facility], [address] [place], [address], 03/13/2025 09:53:05 CMP, serum or plasma 2023 024 [email or web address] [facility], [address] [place], [address], 03/07/2024 09:11:44 lipid panel, serum 2023 024 [email or web address] [facility], [address] [place], [address], 03/07/2024 09:11:45 CBC w/ auto diff [address], [address] [place], [address], 03/07/2024 09:11:44 ferritin, serum or plasma [address], [address] [place], [address], 03/07/2024 09:11:44 iron + total iron-bind ing capacity (TIBC), serum [address], [address] [place], [address], 03/07/2024 09:11:44 TSH, serum or plasma [address], [address] [place], [address], 03/07/2024 09:11:44 T3, free, serum or plasma [address], [address] [place], [address], 03/07/2024 09:11:44 vitamin B12, serum [address], [address] [place], [address], 03/07/2024 09:11:45 CMP, serum or plasma [address], [address] [place], [address], 08/11/2023 08:06:08 lipid panel, serum 2022 023 [facility], [address] [place], [address], 08/05/2023 17:51:38 iron + total iron-bind ing capacity (TIBC), serum [address], [address] [place], [address], 08/11/2023 08:06:09 vitamin B12, serum [address], [address] [place], [address], 08/11/2023 08:06:09 ferritin, serum or plasma [address], [address] [place], [address], 08/11/2023 08:06:09 folate, serum [address], [address] [place], [address], 08/11/2023 08:06:09 CBC [address], [address] [place], [address], 08/11/2023 08:06:09 T3, free, serum or plasma [address], [address] [place], [address], 08/11/2023 08:06:09 TSH + free T4, serum [address], [address] [place], [address], 08/11/2023 08:06:09 Referral None recorded. Procedures None recorded. Surgeries None recorded. Imaging MAMMO, screening , digital, bilateral 2023 024 [email or web address] 5 [facility], [facility] Shonna Garcia, [place], [address], 03/13/2024 08:52:46 Medication Orders amlodipin e 5 mg tablet 2024 025 [facility] [address] [place], [address], 03/06/2025 09:15:12 [employer] Thyroid 60 mg tablet 2024 025 [facility] [address] [place], [address], 03/06/2025 09:18:24 lisinopri l 20 mg tablet 2023 024 [facility] [address], [address] [place], [address], 09/26/2024 17:22:22 lisinopri l 20 mg tablet [address] [facility] [address] [place], [address], 02/28/2024 17:11:02 lisinopri l 20 mg tablet 2022 023 [facility] [address], [address] [place], [address], 07/28/2023 16:27:09 [employer] Thyroid 60 mg tablet 2022 023 [facility] [address] [place], [address], 07/28/2023 16:27:05 Patient TargetsNo targets recorded. Patient Instructions Encounter Date Encounter Id Patient Instructions Last Modified By Organization Details Last Modified Time 09/26/2024 [id number] [facility]* [email or web address] Not avail[facility] e 09/27/2024 13:01:26 INFLUENZA VACCIN E Recommended today, but patient declined TD/TDAP PNEUMONIA VACCINE SHINGLES MAMMOGRAM: Last Mammogram 06/2024 No screening necessary patient is up to date DEXA SCAN CERVICAL SCREENING/PELVIC EXAMINATION Recommended today, but patient declined Ordered No screening necessary patient is up to date COLORECTAL SCREENING: Last Colonoscopy 09/2022 No screening necessary patient is up to date DEPRESSION SCREENING Negative BMI Overweight Approp riate NUTRITION Heart Healthy Diet PHYSICAL ACTIVITY VISION ALCOHOL USE TOBACCO USE LUNG CANCER SCREENING SEXUALLY ACTIVE HEPATITIS C SCREENING GLUCOSE SCREENING Ordered Not needed LIPID SCREENING Ordered Not needed [email or web address] Not available 09/27/2024 10:41:13 Reason for Referral None Reported. Results Created Date Observation Date Name Description Value Unit Range Abnormal Flag Note LastModifiedBy Organization Detail LastModifiedTime 03/06/2003/06/2025 CBC/C OMPLE TE BLD COUNT W/DIF F white blood cells 6.6 x10'3 /uL 4.2-10 .8 Not Available [facility] (Lab) [address] [place], [address], 03/06/2025 20:20:48 03/06/20 25 03/06/2025 CBC/C OMPLE TE BLD COUNT W/DIF F red blood cells 4.04 x10'6 /uL 3.80-5 .20 Not Available [facility] (Lab) [address] [place], [address], 03/06/2025 20:20:48 03/06/20 25 03/06/2025 CBC/C OMPLE TE BLD COUNT W/DIF F hemoglobin 9.8 g/dL 12.0-1 5.6 low Not Available [facility] (Lab) [address] [place], [address], 03/06/2025 20:20:48 03/06/2003/06/2025 CBC/C OMPLE TE BLD COUNT W/DIF F hematocrit 35.0 % 35.7-4 5.7 low Not Available [facility] (Lab) [address] [place], [address], 03/06/2025 20:20:48 03/06/2003/06/2025 CBC/C OMPLE TE BLD COUNT W/DIF F mean red cell volume 86.6 fL 82.0-9 9.0 Not Available [facility] (Lab) [address] [place], [address], 03/06/2025 20:20:48 03/06/20 25 03/06/2025 CBC/C OMPLE TE BLD COUNT W/DIF F mean red cell hemoglobin 24.3 pg 27.0-3 3.0 low Not Available [facility] (Lab) [address] [place], [address], 03/06/2025 20:20:48 03/06/20 25 03/06/2025 CBC/C OMPLE TE BLD COUNT W/DIF F mean RBC HGB concentratio n 28.0 g/dL 31.0-3 6.0 low Not Available [facility] (Lab) [address] [place], [address], 03/06/2025 20:20:48 03/06/20 25 03/06/2025 CBC/C OMPLE TE BLD COUNT W/DIF F red cell distribution width 19.1 % 11.8-1 5.5 high Not Available [facility] (Lab) [address] [place], [address], 03/06/2025 20:20:48 03/06/20 25 03/06/2025 CBC/C OMPLE TE BLD COUNT W/DIF F platelets 319 x10'3 /uL 150-40 0 Not Available [facility] (Lab) [address] [place], [address], 03/06/2025 20:20:48 03/06/20 25 03/06/2025 CBC/C OMPLE TE BLD COUNT W/DIF F mean platelet volume 11.8 fL 9.0-12 .4 Not Available [facility] (Lab) [address] [place], [address], 03/06/2025 20:20:48 03/06/20 25 03/06/2025 CBC/C OMPLE TE BLD COUNT W/DIF F neutrophils 56.2 % 39.0-7 2.0 Not Available [facility] (Lab) [address] [place], [address], 03/06/2025 20:20:48 03/06/20 25 03/06/2025 CBC/C OMPLE TE BLD COUNT W/DIF F lymphocytes 32.4 % 16.0-4 7.0 Not Available [facility] (Lab) [address] [place], [address], 03/06/2025 20:20:48 03/06/20 25 03/06/2025 CBC/C OMPLE TE BLD COUNT W/DIF F monocytes 7.8 % 5.0-12 .0 Not Available [facility] (Lab) [address] [place], [address], 03/06/2025 20:20:48 03/06/20 25 03/06/2025 CBC/C OMPLE TE BLD COUNT W/DIF F eosinophils 2.4 % 1.0-7. 0 Not Available [facility] (Lab) [address] [place], [address], 03/06/2025 20:20:48 03/06/20 25 03/06/2025 CBC/C OMPLE TE BLD COUNT W/DIF F basophils 0.9 % 0.0-2. 0 Not Available [facility] (Lab) [address] [place], [address], 03/06/2025 20:20:48 03/06/20 25 03/06/2025 CBC/C OMPLE TE BLD COUNT W/DIF F immature granulocytes 0.3 % 0.00-0 .50 Not Available [facility] (Lab) [address] [place], [address], 03/06/2025 20:20:48 03/06/20 25 03/06/2025 CBC/C OMPLE TE BLD COUNT W/DIF F neutrophils, absolute count 3.69 x10'3 /uL 1.5-8. 0 Not Available [facility] (Lab) [address] [place], [address], 03/06/2025 20:20:48 03/06/20 25 03/06/2025 CBC/C OMPLE TE BLD COUNT W/DIF F lymphocytes, absolute count 2.13 x10'3 /uL 1.07-3 .43 Not Available [facility] (Lab) [address] [place], [address], 03/06/2025 20:20:48 03/06/20 25 03/06/2025 CBC/C OMPLE TE BLD COUNT W/DIF F monocytes, absolute count 0.51 x10'3 /uL 0.29-0 .99 Not Available [facility] (Lab) [address] [place], [address], 03/06/2025 20:20:48 03/06/20 25 03/06/2025 CBC/C OMPLE TE BLD COUNT W/DIF F eosinophils, absolute count 0.16 x10'3 /uL 0.02-0 .53 Not Available [facility] (Lab) [address] [place], [address], 03/06/2025 20:20:48 03/06/20 25 03/06/2025 CBC/C OMPLE TE BLD COUNT W/DIF F basophils, absolute count 0.06 x10'3 /uL 0.01-0 .08 Not Available [facility] (Lab) [address] [place], [address], 03/06/2025 20:20:48 03/06/20 25 03/06/2025 CBC/C OMPLE TE BLD COUNT W/DIF F immature granulocytes ,absolute 0.02 x10'3 /uL 0.00-0 .05 Not Available [facility] (Lab) [address] [place], [address], 03/06/2025 20:20:48 03/06/20 25 03/06/2025 CBC/C OMPLE TE BLD COUNT W/DIF F nucleated red blood cells 0.0 % -0 Not Available [facility] (Lab) [address] [place], [address], 03/06/2025 20:20:48 03/06/20 25 03/06/2025 CBC/C OMPLE TE BLD COUNT W/DIF F NRBC# 0.00 x10'3 /uL Not Available [facility] (Lab) [address] [place], [address], 03/06/2025 20:20:48 03/06/20 25 03/06/2025 CBC/C OMPLE TE BLD COUNT W/DIF F anisocytosis OCCASI ONAL Not Available [facility] (Lab) [address] [place], [address], 03/06/2025 20:20:48 03/06/20 25 03/06/2025 CBC/C OMPLE TE BLD COUNT W/DIF F hypochromia 1+ Not Available [facility] (Lab) [address] [place], [address], 03/06/2025 20:20:48 03/06/20 25 03/06/2025 IRON/ TIBC PANEL total iron binding capacity 385 mcg/d L 265-47 5 Not Available [facility] (Lab) [address] [place], [address], 03/06/2025 19:19:28 03/06/20 25 03/06/2025 IRON/ TIBC PANEL % transferrin saturation 8 % 20-55 low Not Available [facility] (Lab) [address] [place], [address], 03/06/2025 19:19:28 03/06/20 25 03/06/2025 IRON/ TIBC PANEL unsaturated iron bind capacity 355 mcg/d L 126-38 2 Not Available [facility] (Lab) [address] [place], [address], 03/06/2025 19:19:28 03/06/20 25 03/06/2025 IRON/ TIBC PANEL iron 30 mcg/d L 42-175 low Not Available [facility] (Lab) [address] [place], [address], 03/06/2025 19:19:28 03/06/20 25 03/06/2025 EVAN TIN ferritin 6 NG/mL 6.24-1 37 low Not Available [facility] (Lab) [address] [place], [address], 03/06/2025 19:59:47 06/20/20 24 06/20/2024 MAMMO , scree mark, digit al, bilat eral No observ ation record ed. [address] , [place], [address], 06/21/2024 14:28:18 06/20/20 24 06/20/2024 MAMMO , scree mark, digit al, bilat eral No observ ation record ed. [address] , [place], [address], 06/21/2024 14:28:19 Result Notes None recorded. Problems Name Problem SNOMED Code Status Onset Date Resolution Date Notes Provider Name and Address Organization Details Recorded Time Mammograph y abnormal 994633585 Active 2021 Not Available [facility] 3 03:14:43 Mammograph y abnormal 181560149 Completed 202109/30/2022 Not Available [facility] 3 03:14:43 Cobalamin deficiency 951784694 Active 2021 Not Available [facility] 3 03:14:43 Abdominal pain 83479257 Active 2021 Not Available [facility] 3 03:14:43 Gastroesop hageal reflux disease 643987256 Active 2020 Not Available [facility] 3 03:14:43 Osteoarthr itis of knee 008444721 Active Not Available [facility] 3 03:14:43 Anemia 958774176 Active 2021 Not Available [facility] 3 03:14:43 Low back pain 814294795 Completed 202109/30/2022 Not Available [facility] 3 03:14:43 Knee pain Completed Not Available [facility] 3 03:14:43 Osteopenia 317647482 Active 2020 Not Available [facility] 3 03:14:43 Menorrhagi a 416086503 Active 2021 Not Available [facility] 3 03:14:43 Hypothyroi dism 45020049 Active 2020 Not Available [facility] 3 03:14:44 Upper respirator y infection 52658364 Completed 201807/02/2022 Not Available [facility] 3 03:14:44 Hyperlipid emia 38292748 Active 2017 Not Available [facility] 3 03:14:44 Essential hypertensi on 49213957 Active Not Available [facility] 3 03:14:44 Vitamin B12 deficiency (non anemic) 32732884 Active 2021 Not Available [facility] 3 03:14:44 Rhinitis 21283242 Completed Not Available [facility] 3 03:14:44 Neck pain 99890734 Completed Not Available [facility] 3 03:14:44 Iron deficiency anemia 72098313 Active 2021 Not Available [facility] 3 03:14:44 Pain in limb 91267496 Completed Not Available [facility] 3 03:14:44 Problem Notes None recorded. Procedures Surgical History None recorded. Imaging Results Imaging Date Name Status LastModified by Organiz [facility] Details LastModified Time 06/20/2024 MAMMO, screening, digital, bilateral completed [email or web address] [place] [address] Shonna Garcia, [place], [address], 06/21/2024 14:28:18 06/20/2024 MAMMO, screening, digital, bilateral completed [email or web address] [address], [place], [address], 06/21/2024 14:28:19 Procedure Notes None recorded. Medical Equipment None Reported. Medications Name Sig Start Date Stop Date Status Note LastModified by Organization Details LastModified Time cyclobenz aprine 10 mg tablet Take 1 tablet twice a day by oral route for 7 days. 12/22 completed Not Available Not Available Not Available amoxicill in 500 mg capsule TAKE 2 CAPSULES BY MOUTH TWICE DAILY 10/05 completed Not Available Not Available Not Available doxycycli ne hyclate 100 mg capsule TAKE 1 CAPSULE BY MOUTH TWICE DAILY FOR 7 DAYS active Not Available Not Available No t Available ibuprofen 800 mg tablet 12/22 completed Not Available Not Available Not Available fluconazo le 150 mg tablet Take 1 tablet by oral route for 1 day. active Not Available Not Available No t Available clarithro mycin 500 mg tablet TAKE 1 TABLET BY MOUTH TWICE DAILY 10/05 completed Not Available Not Available Not Available lisinopri l 20 mg tablet TAKE 1 TABLET BY MOUTH ONCE DAILY active Not Available Not Available No t Available amlodipin e 5 mg tablet Take 1 tablet every day by oral route. 2024 active Not Available Not Available Not Avai lable tramadol 50 mg tablet Take 1 tablet 3 times a day by oral route as needed. active Not Available Not Available No t Available Euthyrox 25 mcg tablet TAKE 1 TABLET BY MOUTH ONCE DAILY active Not Available Not Available No t Available Flagyl 500 mg tablet Take 1 tablet every 8 hours by oral route for 7 days. 12/22 completed Not Available Not Available Not Available pantopraz ole 40 mg tablet,de layed release Take 1 tablet every day by oral route in the morning. 12/22 completed Not Available Not Available Not Available cyanocoba carmen (vit B-12) 1,000 mcg/mL injection solution Inject 1 mL every week by subcutan eous route for 4 days. 12/22 completed Not Available Not Available Not Available esomepraz ole magnesium 40 mg capsule,d elayed release Take 1 capsule every day by oral route. NEED OFFICE VISIT FOR REFILLS* * 08/08 completed as needed Not Available Not Available Not Available Cipro 500 mg tablet Take 1 tablet twice a day by oral route for 7 days. 12/22 completed Not Available Not Available Not Available nystatin 100,000 unit/gram topical cream APPLY TO THE AFFECTED AREA(S) BY TOPICAL ROUTE 2 TIMES PER DAY active Not Available Not Available No t Available lisinopri l 10 mg tablet TAKE 1 TABLET BY MOUTH ONCE DAILY 12/22 completed Not Available Not Available Not Available omeprazol e 20 mg capsule,d elayed release TAKE 1 CAPSULE BY MOUTH TWICE DAILY 12/22 completed Not Available Not Available Not Available lisinopri l 20 mg-hydroc hlorothia zide 25 mg tablet TAKE 1 TABLET BY MOUTH ONCE DAILY NEED OFFICE VISIT FOR REFILLS* * 08/08 completed Not Available Not Available Not Available lisinopri l 10 mg-hydroc hlorothia zide 12.5 mg tablet Take 1 tablet every day by oral route. 08/24 completed Not Available Not Available Not Available methylpre dnisolone 4 mg tablets in a dose pack FPD active Not Available Not Available Not Available SF 5000 Plus 1.1 % dental cream BRUSH TWICE DAILY 12/22 completed Not Available Not Available Not Available fluticaso ne propionat e 50 mcg/actua tion nasal spray,nguyen pension 2 sprays each nostril qd active Not Available Not Available No t Available amoxicill in 875 mg-potass ium clavulana te 125 mg tablet TK 1 T PO BID active Not Available Not Available No t Available cyclobenz aprine 5 mg tablet Take 1 tablet 3 times a day by oral route. active Not Available Not Available No t Available FeroSul 325 mg (65 mg iron) tablet TAKE 1 TABLET BY MOUTH TWICE DAILY active Not Available Not Available No t Available GaviLyte- G 236 gram-22.7 4 gram-6.74 gram-5.86 gram oral solution TAKE DIRECTED 1/2 OF THE SOLUTION AT 5:00 PM THE NIGHT BEFORE PROCEDUR E 09/21/20 AND THE OTHER 1/2 AT 5:00 AM ON 09/22/2012/22 completed Not Available Not Available Not Available [employer] Thyroid 30 mg tablet TAKE 1 TABLET BY MOUTH ONCE DAILY 10/14 completed Should have been increase d to 60mg 07/30 Not Available Not Available Not Available [employer] Thyroid 60 mg tablet Take 1 tablet every day by oral route. 2024 active Not Available Not Available Not Racheal rudolph [employer] Thyroid 15 mg tablet TAKE 1 TABLET BY MOUTH ONCE DAILY NEED OFFICE VISIT FOR REFILLS* * active Not Available Not Available No t Available Vitals Date Recorded Body height Body mass index (BMI) Body weight Body temperature Heart rate Oxygen saturation Oxygen saturation in Arterial blood by Pulse oximetry Systolic blood pressure Diastolic blood pressure Provider Name and Address Organization Details Last Updated DateTime 3 172.72 cm 24.6 kg/m2 79817.9 6 g 98.2 [degF] 70 /min 100 % 100 % 136 mm[Hg] 70 mm[Hg] Hermelinda Fry MA [facility] 3 16:14:48 Date Recorded Body height Body mass index (BMI) Body weight Body temperature Heart rate Oxygen saturation Oxygen saturation in Arterial blood by Pulse oximetry Systolic blood pressure Diastolic blood pressure Provider Name and Address Organization Details Last Updated DateTime 4 172.72 cm 26.2 kg/m2 46250.8 9 g 97.8 [degF] 79 /min 99 % 99 % 136 mm[Hg] 86 mm[Hg] Laina cabezas Esvin [facility] 4 16:01:14 Date Recorded Body height Body mass index (BMI) Body weight Body temperature Heart rate Oxygen saturation Oxygen saturation in Arterial blood by Pulse oximetry Provider Name and Address Organization Details Last Updated DateTime 4 172.72 cm 25.7 kg/m2 91828.1 1 g 97.8 [degF] 82 /min 99 % 99 % SAUL Puente [facility] 4 16:55:54 Date Recorded Systolic blood pressure Diastolic blood pressure Provider Name and Address Organization Details Last Updated DateTime 09/26/2024 154 mm[Hg] 94 mm[Hg] Giovanni Bright MD [address] [place] [address], [place] [address], [place], [address], [employer] [facility] [employer] 09/26/2024 17:08:41 Date Recorded Body height Body mass index (BMI) Body weight Body temperature Heart rate Oxygen saturation Oxygen saturation in Arterial blood by Pulse oximetry Systolic blood pressure Diastolic blood pressure Provider Name and Address Organization Details Last Updated DateTime 5 172.72 cm 25.5 kg/m2 85049.5 2 g 97.4 [degF] 91 /min 99 % 99 % 162 mm[Hg] 88 mm[Hg] Laina Carywolfgang jocelynn SAUL [place] - S MD [employer] [facility] 5 08:58:03 Date Recorded Body mass index (BMI) Body height Oxygen saturation Oxygen saturation in Arterial blood by Pulse oximetry Heart rate Body temperature Body weight Systolic blood pressure Diastolic blood pressure Provider Name and Address Organization Details Last Updated DateTime 3 25.2 kg/m2 172.72 cm 99 % 99 % 80 /min 97.6 [degF] 97094.3 3 g 140 mm[Hg] 80 mm[Hg] Not Available [facility] 03:09:27 Social History Question Answer Notes LastModified by [employer] Details LastModified Time Tobacco Smoking Status Never Smoker Not Available [facility] 01/06/2023 02:57:44 What Is Your Level Of Alcohol Consumption? None [id number] Information not available 01/06/2023 What Is Your Level Of Caffeine Consumption? Occasional [id number] Information not available 01/06/2023 How Much Tobacco Do You Chew? None [id number] Information not available 01/06/2023 What Type Of Diet Are You Following? REGULAR [id number] Information not available 01/06/2023 Which Illicit Or Recreational Drugs Have You Used? None [id number] Information not available 01/06/2023 Do You Or Have You Ever Used E-cigarettes Or Vape? Never Used Electronic Cigarettes [id number] Information not available 01/06/2023 What Is Your Occupation? No [id number] Information not available 01/06/2023 What Was The Date Of Your Most Recent Tobacco Screening? 02/27/2021 [id number] Information not available 01/06/2023 Do You Or Have You Ever Used Smokeless Tobacco? Never Used Smokeless Tobacco [id number] Information not available 01/06/2023 How Much Tobacco Do You Smoke? No [id number] Information not available 01/06/2023 Do You Use Sunscreen Routinely? No [id number] Information not available 01/06/2023 Sex: Female Functional Status Question Answer Note LastModified by Organizat ion Details LastModified Time What is your exercise level? Moderate [id number] Information not available 01/06/2023 Mental Status None recorded. Family History Relationship Description Onset Age of this Age Resolved Age Notes LastModified by Organization Details LastModified Time Mother Essential hypertension [id number] Not available 01/06/2023 03:07:51 Paternal Grandmother Diabetes mellitus [id number] Not available 01/06/2023 03:07:52 Medical History Condition Response HYPERTENSION Y Gynecological HistoryNo gynecological history recorded. Obstetrics History GPAL:G 0 P 0 0 0 0 Past Encounters Encounter ID Performer Location Encounter Start Date Encounter Closed Date Diagnosis/Indication Diagnosis SNOMED-CT Code Diagnosis ICD10 Code Diagnosis Note [id number] Giovanni Bright MD [facility] [address] [address] 02/27/2021 00:00:00 02/27/2021 13:02:00 [id number] MD MANOJ [facility] [address] [address] 08/08/2021 00:00:00 08/08/2021 12:46:07 [id number] MD NELI Jaure[facility] [address] [address] 07/15/2022 00:00:00 07/15/2022 12:54:08 [id number] MD NELI [facility]ure[facility] [address] [address] 08/05/2022 00:00:00 08/05/2022 12:42:53 [id number] MD NELI Jauregui [facility] [address] [address] 10/05/2022 00:00:00 10/05/2022 15:59:04 [id number] Giovanni Bright MD [facility] Internal [facility] [address] [facility] [place] [address] 12/22/2022 00:00:00 12/22/2022 13:07:53 [id number] Giovanni Bright MD [facility] Internal [address] [facility] [place] [address] 07/28/2023 16:07:22 07/28/2023 16:33:00 Essential hypertension 66675372 I10 under control Hypothyroidism 87993566 E03.9 Anemia 170648942 D64.[address] infusion from Dr Sosa Menorrhagia 787270000 N9 2.0 still get spotting with IUD, she will call her gyne [id number] Giovanni Bright MD [facility] Internal [facility] [address] [facility] [place] [address] 02/28/2024 15:48:06 02/28/2024 16:46:59 Essential hypertension 78434683 I10 under control Hypothyroidism 60079219 E03.9 Anemia 865218072 D64.9 Menorrhagia 566238417 N9 2.0 has IUD, no more symptoms Adult heal th examination 950621519 Z00.00 Colonoscop y- 09/22/2022 EGD- 09/22/2022 Mammogram- 08/06/2022 PAP- Sees WRINGER OPERATOR- up to date and is NL- Has IUDFlu- NEVERCOVID - has had 3 injections Screening mammography 24 532894 Z12.31 Cobalamin deficiency 190 157130 E53.8 [id number] Giovanni Bright MD [facility] Internal Med [facility] [address] [facility] [place] [address] 09/26/2024 16:25:56 09/26/2024 17:23:14 Essential hypertension 60297426 I10 watch Hypothyroidism 56707682 E03.9 stable Anemia 108005083 D64.9 low iron, advised to take iron bid Menorrhagia 867335710 N9 2.0 has IUD, no more symptoms Adult heal th examination 186922827 Z00.00 Colonoscop y- 09/22/2022 EGD- 09/22/2022 Mammogram- 06/20/2024 PAP- Sees WRINGER OPERATOR- up to date and is NL- Has IUDFlu- NEVERCOVID - has had 3 injections Cobalamin deficiency 190 025601 E53.8 nl levels, otc discussed Depression screening 171 895593 Z13.31 Normal bod y mass index 57592618 Z68.25 [id number] Giovanni Bright MD [facility] [address] [place] [address] 03/06/2025 08:48:28 03/06/2025 09:22:12 Essential hypertension 34648538 I10 add amlodipine Hypothyroidism 85853498 E03.9 stable Anemia 675111389 D64.9 low iron, advised to take iron bid Health Concerns Section Related Observation LastModified by Organization Detai ls LastModified Time None Recorded Concern Status LastModified by Organization Details LastModified Time None Recorded Advance Directives Directive None Recorded Payers Encounter Date Sequence Insurance Name Policy Number Policy Murphy Covered Member ID Murphy Member ID Guarantor Name 07/28/2023 1 [employer] Jude Calderon [id number] Jude Calderon 02/28/2024 1 [employer] Jude Calderon [id number] Jude Calderon 09/26/2024 1 [employer]) Jude Calderon [id number] Jude Calderon 03/06/2025 1 [employer] Jude Calderon [id number] Jude Calderon Notes Date Note Type Note Provider Name and Address Organization Details Recorded Time 07/28/2023 text/html She is her today for her routine follow up.Hypertension- under controlmeds- Lisinopril 20mg Hypothyroidism- needs labsMeds- Thyroid 60 mg daily Iron def anemia- on iron pills b12 def- she has stopped taking shots Giovanni Bright MD [address], [address], [place], [address], [employer] 07/28/2023 16:31:32 02/28/2024 text/html She is her today for her routine follow up.Hypertension- under controlmeds- Lisinopril 20mg daily Hypothyroidism- needs labsHas gained 10 lbsMeds- Thyroid 60 mg daily Iron def anemia- on iron pills B12 def- she has stopped taking shots Giovanni Bright MD [address], [place], [address], [employer] 02/28/2024 16:46:20 09/26/2024 text/html She is her today for her routine follow up.Hypertension- 154/94. Did have a headache yesterday.Meds- Lisinopril 20mg daily Hypothyroidism- needs labsHas lost 3 lbsMeds- Thyroid 60 mg daily Iron def anemia- on iron pills B12 def- she has stopped taking shots Giovanni Bright MD [address], [address], [place], [address], [employer] 09/27/2024 13:01:39 03/06/2025 text/html Pt called yester day after having elevated blood pressure.It was running 186/110.Pt does state that she does have a slight headacheToday it is 162/88sleeps wellno cp or sobvery active, goes to gym Giovanni Bright MD [address], [place], [address], [employer] 03/06/2025 09:20:49 OBGyn Episode No OBEpisode recorded.
--- OUTSIDE RECORDS SUMMARY | 2025-03-15 10:32 | XMS_ITS | Data Portability ---
[facility] Organization [facility] Address [address] [place] [address] Assessment No assessment recorded. Plan of Treatment Reminders Order Date Submit Date Provider Last Modified By Organization Details Last Modified Time Details Appointments None recorded . Lab culture, urine 2019 020 [facility], [facility] [facility], [address], [place], [address], 0 06:09:06 pap, IG + HPV, cervical 2019 020 [facility], [address] [facility], [address], [place], [address], 0 02:23:14 urinalys is, dipstick 2019 020 [email or web address] In-Office Order, Internal Use Only DO Not Attach Compendium DO Not Attach Compendium, Do Not Delete/merge, [id number] 0 13:18:02 pregnanc y test, urine 2019 020 [email or web address] In-Office Order, Internal Use Only DO Not Attach Compendium DO Not Attach Compendium, Do Not Delete/merge, [id number] 0 13:18:02 bacteria l vaginosi s panel, vaginal 2019 020 [facility] (Centralized Electronic Ordering - All Locations), Patient Can Go To The Location Of Their Choice, [id number] 06:09:05 culture, vaginal/ rectal, streptoc occus group B 2019 020 [facility] (Centralized Electronic Ordering - All Locations), Patient Can Go To The Location Of Their Choice, [id number] 0 06:09:05 urinalys is, dipstick 2016 017 kinga In-Office Order, Internal Use Only DO Not Attach Compendium DO Not Attach Compendium, Do Not Delete/merge, [id number] 7 16:54:07 pregnanc y test, urine 2016 017 kinga In-Office Order, Internal Use Only DO Not Attach Compendium DO Not Attach Compendium, Do Not Delete/merge, [id number] 7 16:54:07 pap, IG + HPV, cervical 2016 017 [facility], [address], [address] [place] [address], [place], [address], 7 16:17:20 bacteria l vaginosi s + vaginiti s panel, vaginal - Z11.3 2016 017 [facility], [address] [place] [address], [address], [place], [address], 7 06:02:51 HSV (1+2) DNA, qual, PCR, unspecif ied specimen - Z11.3 2016 017 [facility], [address] [place] [address], [address], [place], [address], 7 06:02:52 culture, vaginal/ rectal, streptoc occus group B - Z11.3 2016 017 [facility], [address] [place] [address], [address], [place], [address], 7 06:02:52 Referral None recorded . Procedures None recorded . Surgeries None recorded . Imaging MAMMO, screenin g, bilatera l 2019 020 [facility] ([facility]), [address], [place], [address], 0 13:18:02 Medication Orders cycloben zaprine 10 mg tablet 2019 020 INTERFACE [facility] [address] [place], [address], 0 12:01:54 multivit hidalgo tablet 2019 020 INTERFACE [facility] [address] [place], [address], 0 12:02:55 Calcium with Vitamin D 600 mg-10 mcg (400 unit) tablet 2019 020 [facility] [address] [place], [address], 0 12:02:58 Linzess 145 mcg capsule 2016 017 [facility] [address] [place], [address], 0 11:12:48 Linzess 145 mcg capsule 2016 017 [facility] [address] [place], [address], 0 11:12:48 calcium 600 mg (as carbonat e)-vitam in D3 20 mcg (800 unit) tablet 2016 017 [facility] [address] [place], [address], 0 11:12:51 multivit hidalgo tablet 2016 017 [facility] [address] [place], [address], 0 11:13:00 Patient TargetsNo targets recorded. Patient Instructions Encounter Date Encounter Id Patient Instructions Last Modified By Organization Details Last Modified Time 06/28/2017 [id number] learning about mood disorders [email or web address] Not available 06/28/2017 17:45:28 11/20/2019 [id number] mammogram: about this test [email or web address] Not available 11/20/2019 13:18:02 Reason for Referral None Reported. Results Created Date Observation Date Name Description Value Unit Range Abnormal Flag Note LastModifiedBy Organization Detail LastModifiedTime 11/20/19 20 11/20/2019 pregn echo test, urine HCG negati ve Not Available In-Office Order Internal Use Only DO Not Attach Compendium DO Not Attach Compendium, Do Not Delete/merge, 11/20/2019 11:31:58 11/20/19 20 11/20/2019 urina lysis , dipst ick Leukocytes Negati ve Not Available In-Office Order Internal Use Only DO Not Attach Compendium DO Not Attach Compendium, Do Not Delete/merge, 11/20/2019 11:24:33 11/20/19 20 11/20/2019 urina lysis , dipst ick Nitrite negati ve Not Available In-Office Order Internal Use Only DO Not Attach Compendium DO Not Attach Compendium, Do Not Delete/merge, 11/20/2019 11:24:33 11/20/19 20 11/20/2019 urina lysis , dipst ick Urobilinogen .2 Not Available In-Of fice Order Internal Use Only DO Not Attach Compendium DO Not Attach Compendium, Do Not Delete/merge, 11/20/2019 11:24:33 11/20/19 20 11/20/2019 urina lysis , dipst ick Protein Negati ve Not Available In-Office Order Internal Use Only DO Not Attach Compendium DO Not Attach Compendium, Do Not Delete/merge, 11/20/2019 11:24:33 11/20/19 20 11/20/2019 urina lysis , dipst ick pH 6.0 Not Available In-Office Order Internal Use Only DO Not Attach Compendium DO Not Attach Compendium, Do Not Delete/merge, 11/20/2019 11:24:33 11/20/19 20 11/20/2019 urina lysis , dipst ick Blood Non-He molyze d: Trace Not Available In-Office Order Internal Use Only DO Not Attach Compendium DO Not Attach Compendium, Do Not Delete/merge, 11/20/2019 11:24:33 11/20/19 20 11/20/2019 urina lysis , dipst ick Specific Rusk 1.010 Not Available In-Off ice Order Internal Use Only DO Not Attach Compendium DO Not Attach Compendium, Do Not Delete/merge, 11/20/2019 11:24:33 11/20/19 20 11/20/2019 urina lysis , dipst ick Ketone Negati ve Not Available In-Office Order Internal Use Only DO Not Attach Compendium DO Not Attach Compendium, Do Not Delete/merge, 11/20/2019 11:24:33 11/20/19 20 11/20/2019 urina lysis , dipst ick Bilirubin Negati ve Not Available In-Office Order Internal Use Only DO Not Attach Compendium DO Not Attach Compendium, Do Not Delete/merge, 11/20/2019 11:24:33 11/20/19 20 11/20/2019 urina lysis , dipst ick Glucose Negati ve Not Available In-Office Order Internal Use Only DO Not Attach Compendium DO Not Attach Compendium, Do Not Delete/merge, 11/20/2019 11:24:33 06/28/20 17 06/28/2017 pregn echo test, urine HCG negati ve Not Available In-Office Order Internal Use Only DO Not Attach Compendium DO Not Attach Compendium, Do Not Delete/merge, [id number] 06/28/2017 13:31:28 06/28/20 17 06/28/2017 urina lysis , dipst ick Leukocytes Trace Not Available In-Offi ce Order Internal Use Only DO Not Attach Compendium DO Not Attach Compendium, Do Not Delete/merge, [id number] 06/28/2017 13:30:44 06/28/20 17 06/28/2017 urina lysis , dipst ick Nitrite negati ve Not Available In-Office Order Internal Use Only DO Not Attach Compendium DO Not Attach Compendium, Do Not Delete/merge, [id number] 06/28/2017 13:30:44 06/28/20 17 06/28/2017 urina lysis , dipst ick Urobilinogen .2 Not Available In-Of fice Order Internal Use Only DO Not Attach Compendium DO Not Attach Compendium, Do Not Delete/merge, [id number] 06/28/2017 13:30:44 06/28/20 17 06/28/2017 urina lysis , dipst ick Protein Negati ve Not Available In-Office Order Internal Use Only DO Not Attach Compendium DO Not Attach Compendium, Do Not Delete/merge, [id number] 06/28/2017 13:30:44 06/28/20 17 06/28/2017 urina lysis , dipst ick pH 7.0 Not Available In-Office Order Internal Use Only DO Not Attach Compendium DO Not Attach Compendium, Do Not Delete/merge, 06/28/2017 13:30:44 06/28/20 17 06/28/2017 urina lysis , dipst ick Blood Negati ve Not Available In-Office Order Internal Use Only DO Not Attach Compendium DO Not Attach Compendium, Do Not Delete/merge, [id number] 06/28/2017 13:30:44 06/28/20 17 06/28/2017 urina lysis , dipst ick Specific Rusk 1.015 Not Available In-Off ice Order Internal Use Only DO Not Attach Compendium DO Not Attach Compendium, Do Not Delete/merge, [id number] 06/28/2017 13:30:44 06/28/20 17 06/28/2017 urina lysis , dipst ick Ketone Negati ve Not Available In-Office Order Internal Use Only DO Not Attach Compendium DO Not Attach Compendium, Do Not Delete/merge, [id number] 06/28/2017 13:30:44 06/28/20 17 06/28/2017 urina lysis , dipst ick Bilirubin Negati ve Not Available In-Office Order Internal Use Only DO Not Attach Compendium DO Not Attach Compendium, Do Not Delete/merge, [id number] 06/28/2017 13:30:44 06/28/20 17 06/28/2017 urina lysis , dipst ick Glucose Negati ve Not Available In-Office Order Internal Use Only DO Not Attach Compendium DO Not Attach Compendium, Do Not Delete/merge, [id number] 06/28/2017 13:30:44 06/28/20 17 06/30/2017 pap, IG + HPV, cervi skylar HPV aptima NEGATI VE negati ve THIS TEST DETEC TS FOURT EEN HIGH- RISK HPV TYPES (16/1 8/31/ 33/35 /39/4 5/ 51/52 /56/5 8/59/ 66/68 ) WITHO UT DIFFE RENTI ATION . Not Available [facility] ([facility]) [address] [place], [address], 07/01/2017 16:17:20 06/28/20 17 07/01/2017 pap, IG + HPV, cervi skylar diagnosis: JEAN Gallegos abnormal EPITH ELIAL CELL ABNOR MALIT Y. ATYPI SKYLAR SQUAM OUS CELLS OF UNDET ERMIN ED SIGNI FICAN CE. Not Available [facility] ([facility]) [address] [facility], [place], [address], 07/01/2017 16:17:20 06/28/20 17 07/01/2017 pap, IG + HPV, cervi skylar specimen adequacy: JEAN Gallegos SATIS FACTO RY FOR EVALU ATION . ENDOC ERVIC AL AND/O R SQUAM OUS METAP LASTI C CELLS (ENDO CERVI SKYLAR COMPO NENT) ARE PRESE NT. Not Available [facility] ([facility]) [address] [facility], [place], [address], 07/01/2017 16:17:20 06/28/20 17 07/01/2017 pap, IG + HPV, cervi skylar clinician provided ICD10: JEAN Gallegos Z01.4 19 Z20.2 Not Available [facility] ([facility]) [address] [place], [address], 07/01/2017 16:17:20 06/28/20 17 07/01/2017 pap, IG + HPV, cervi skylar performed by: COMMEN T DAY W DREGE R, CYTOT ECHNO LOGIS T (ASCP ) Not Available [facility] ([facility]) [address] [place], [address], 07/01/2017 16:17:20 06/28/20 17 07/01/2017 pap, IG + HPV, cervi skylar electronical ly signed by: JEAN VAIL MD, PATHO LOGIS T Not Available [facility] ([facility]) [address] [place], [address], 07/01/2017 16:17:20 06/28/20 17 07/01/2017 pap, IG + HPV, cervi skylar . . Not Available [facility] ([facility]) [address] [place], [address], 07/01/2017 16:17:20 06/28/20 17 07/01/2017 pap, IG + HPV, cervi skylar pathologist provided ICD10: JEAN Gallegos R87.6 10 Not Available [facility] ([facility]) [address] [place], [address], 07/01/2017 16:17:20 06/28/20 17 07/01/2017 pap, IG + HPV, cervi skylar note: JEAN Gallegos THE PAP SMEAR IS A SCREE MARK TEST DESIG ALVARO TO AID IN THE DETEC TION OF PATIENCE LIGNA NT AND MALIG NANT CONDI TIONS OF THE UTERI NE CERVI X. IT IS NOT A DIAGN OSTIC PROCE DURE AND SHOUL D NOT BE USED THE SOLE MEANS OF DETEC TING CERVI SKYLAR CANCE R. BOTH FALSE -POSI TIVE AND FALSE -NEGA TIVE REPOR TS DO OCCUR . Not Available [facility] ([facility]) [address] [place], [address], 07/01/2017 16:17:20 06/28/20 17 07/01/2017 pap, IG + HPV, cervi skylar test methodology: JEAN Gallegos THIS LIQUI D BASED THINP REP(R ) PAP TEST WAS SCREE ALVARO WITH THE USE OF AN IMAGE GUIDE Jimmie Lopez Not Available [facility] ([facility]) [address] [place], [address], 07/01/2017 16:17:20 06/28/20 17 06/30/2017 bacte rial vagin osis + vagin itis panel , vagin al trich vag by MARQUES NEGATI VE negati ve Not Available [facility] ([facility]) [address] [place], [address], 07/02/2017 06:02:51 06/28/20 17 06/30/2017 bacte rial vagin osis + vagin itis panel , vagin al chlamydia trachomatis, MARQUES NEGATI VE negati ve Not Available [facility] ([facility]) [address] [facility], [place], [address], 07/02/2017 06:02:51 06/28/20 17 06/30/2017 bacte rial vagin osis + vagin itis panel , vagin al neisseria gonorrhoeae, MARQUES NEGATI VE negati ve Not Available [facility] ([facility]) [address] [place], [address], 07/02/2017 06:02:51 06/28/20 17 07/01/2017 bacte rial vagin osis + vagin itis panel , vagin al atopobium vaginae LOW - 0 score Not Available [facility] ([facility]) [address] [place], [address], 07/02/2017 06:02:51 06/28/20 17 07/01/2017 bacte rial vagin osis + vagin itis panel , vagin al bvab 2 LOW - 0 score Not Available [facility] ([facility]) [address] [place], [address], 07/02/2017 06:02:51 06/28/20 17 07/01/2017 bacte rial vagin osis + vagin itis panel , vagin al megasphaera 1 LOW - 0 score CALCU LATE TOTAL SCORE BY HILLARY Barnes THE 3 INDIV IDUAL BACTE RIAL VAGIN OSIS (BV) MARKE R SCORE S TOGET HER. TOTAL SCORE IS INTER PRETE D FOLLO WS: TOTAL SCORE 0-1: INDIC ATES THE ABSEN CE OF BV. TOTAL SCORE 2: INDET ERMIN ATE FOR BV. ADDIT IONAL CLINI SKYLAR DATA SHOUL D BE EVALU ATED TO ESTAB DAPHNIE A DIAGN OSIS. TOTAL SCORE 3-6: INDIC ATES THE PRESE NCE OF BV. THIS TEST WAS DEVEL OPED AND ITS PERFO RMANC E MARIA ESTHER CTERI STICS DETER MINED BY [employer]. IT HAS NOT BEEN CLEAR ED OR APPRO FLAKITO BY THE FOOD AND DRUG ADMIN ISTRA TION. THE FDA HAS DETER MINED THAT SUCH CLEAR ANCE OR APPRO ORA IS NOT NECES CHOCO. Not Available [facility] ([facility]) [address] [place], [address], 07/02/2017 06:02:51 06/28/20 17 07/01/2017 bacte rial vagin osis + vagin itis panel , vagin al andria albicans, MARUQES NEGATI VE negati ve Not Available [facility] ([facility]) [address] [place], [address], 07/02/2017 06:02:51 06/28/2007/01/2017 bacte rial vagin osis + vagin itis panel , vagin al andria glabrata, MARQUES POSITI VE negati ve abnormal THIS TEST WAS DEVEL OPED AND ITS PERFO RMANC E MARIA ESTHER CTERI STICS DETER MINED BY [employer]. IT HAS NOT BEEN CLEAR ED OR APPRO FLAKITO BY THE FOOD AND DRUG ADMIN ISTRA TION. THE FDA HAS DETER MINED THAT SUCH CLEAR ANCE OR APPRO ORA IS NOT NECES CHOCO. PUBLI SHED DATA DEMON STRAT E THAT UP TO 65% OF MULU DA GLABR PETR IDENT IFIED IN CASES OF VAGIN AL MULU DIASI S HAVE DECRE ASED SUSCE PTIBI LITY TO FLUCO NAZOL E. Not Available [facility] ([facility]) [address] [facility], [place], [address], 07/02/2017 06:02:51 06/28/20 17 07/01/2017 HSV (1+2) DNA, qual, PCR, unspe cifie d speci men hsv 1 MARQUES NEGATI VE negati ve Not Available [facility] ([facility]) [address] [facility], [place], [address], 07/02/2017 06:02:52 06/28/20 17 07/01/2017 HSV (1+2) DNA, qual, PCR, unspe cifie d speci men hsv 2 MARQUES NEGATI VE negati ve Not Available [facility] ([facility]) [address] [facility], [place], [address], 07/02/2017 06:02:52 06/28/20 17 06/30/2017 cultu re, vagin al/re ctal, strep tococ cus group B strep gp B MARQUES NEGATI VE negati ve CENTE RS FOR DISEA SE CONTR OL AND PREVE NTION (CDC) AND AMERI CAN CONGR ESS OF OBSTE TRICI ANS AND GYNEC OLOGI STS (ACOG ) GUIDE LINES FOR PREVE NTION OF PERIN ATAL GROUP B STREP TOCOC SKYLAR (GBS) DISEA SE SPECI FY CO-CO LLECT ION OF A VAGIN AL AND RECTA L SWAB SPECI MEN TO MAXIM IZE SENSI TIVIT Y OF GBS DETEC TION. PER THE CDC AND ACOG, SWABB ING BOTH THE LOWER VAGIN A AND RECTU M SUBST ANTIA LLY INCRE ASES THE YIELD OF DETEC TION BRANDY RED WITH SAMPL ING THE VAGIN A ALONE . PENIC ILLIN G, AMPIC ILLIN , OR CEFAZ TRISH ARE INDIC ATED FOR INTRA PARTU M PROPH YLAXI S OF PERIN ATAL GBS COLON IZATI ON. REFLE X SUSCE PTIBI LITY TESTI NG SHOUL D BE PERFO RMED PRIOR TO USE OF CLIND AMYCI N ONLY ON GBS ISOLA SARATH FROM PENIC ILLIN -CONSTANZA RGIC WOMEN WHO ARE CONSI DERED A HIGH RISK FOR ANAPH YLAXI S. TREAT MENT WITH VANCO MYCIN WITHO UT ADDIT IONAL TESTI NG IS JAVIER NTLELE IF RESIS TANCE TO CLIND AMYЮЛИЯ N IS NOTED . Not Available [facility] ([facility]) [address] [place], [address], 07/02/2017 06:02:52 11/20/19 20 11/22/2019 pap, IG + HPV, cervi skylar diagnosis: Jean [place] FOR INTRA EPITH ELIAL RUSTAM N OR RAGHAV NEWSOME . Not Available [facility] ([facility]) [address] [facility], [place], [address], 11/22/2019 20:07:45 11/20/19 20 11/22/2019 pap, IG + HPV, cervi skylar specimen adequacy: Jean gallegos Satis facto trey for evalu ation . Endoc ervic al and/o r squam ous metap lasti c cells (endo cervi skylar compo nent) are prese nt. Not Available [facility] ([facility]) [address] [facility], [place], [address], 11/22/2019 20:07:45 11/20/19 20 11/22/2019 pap, IG + HPV, cervi skylar clinician provided ICD10: Jean gallegos Z20.2 Z01.4 19 Not Available [facility] ([facility]) [address] [place], [address], 11/22/2019 20:07:45 11/20/19 20 11/22/2019 pap, IG + HPV, cervi skylar performed by: Jean mena, Cytot jayne gallegos (ASCP ) Not Available [facility] ([facility]) [address] [place], [address], 11/22/2019 20:07:45 11/20/19 20 11/22/2019 pap, IG + HPV, cervi skylar . . Not Available [facility] ([facility]) [address] [place], [address], 11/22/2019 20:07:45 11/20/19 20 11/22/2019 pap, IG + HPV, cervi skylar note: Commen t The Pap smear is a scree mark test desig alvaro to aid in the detec tion of patience ligna nt and malig nant condi tions of the uteri ne cervi x. It is not a diagn ostic proce dure and shoul d not be used as the sole means of detec ting cervi skylar cance r. Both false -posi tive and false -nega tive repor ts do occur . Not Available [facility] ([facility]) [address] [place], [address], 11/22/2019 20:07:45 11/20/19 20 11/22/2019 pap, IG + HPV, cervi skylar test methodology: Francesen t This liqui d based ThinP rep(R ) pap test was scree alvaro with the use of an image guide jimmie england. Not Available [facility] ([facility]) [address] [facility], [place], [address], 11/22/2019 20:07:45 11/20/19 20 11/22/2019 pap, IG + HPV, cervi skylar HPV aptima Negati ve negati ve This nucle ic acid ampli ficat ion test detec ts fourt een high- risk HPV types (16,1 8,31, 33,35 ,39,4 5,51, 52,56 ,58,5 9,66, 68) witho ut diffe renti ation . Not Available [facility] ([facility]) [address] [facility], [place], [address], 11/22/2019 20:07:45 11/20/1911/22/2019 bacte rial vagin osis panel , vagin al hsv 1 MARQUES Negati ve negati ve Not Available [facility] ([facility]) [address] [place], [address], 11/25/2019 06:09:05 11/20/1911/22/2019 bacte rial vagin osis panel , vagin al hsv 2 MARQUES Negati ve negati ve Not Available [facility] ([facility]) [address] [place], [address], 11/25/2019 06:09:05 11/20/1911/23/2019 bacte rial vagin osis panel , vagin al trich vag by MARQUES Negati ve negati ve Not Available [facility] ([facility]) [address] [facility], [place], [address], 11/25/2019 06:09:05 11/20/1911/24/2019 bacte rial vagin osis panel , vagin al atopobium vaginae Low - 0 score Not Available [facility] ([facility]) [address] [place], [address], 11/25/2019 06:09:05 11/20/1911/24/2019 bacte rial vagin osis panel , vagin al bvab 2 Low - 0 score Not Available [facility] ([facility]) [address] [place], [address], 11/25/2019 06:09:05 11/20/1911/24/2019 bacte rial vagin osis panel , vagin al megasphaera 1 Low - 0 score Calcu late total score by hillary barnes the 3 indiv idual bacte rial vagin osis (BV) marke r score s toget her. Total score is inter prete d as follo ws: Total score 0-1: Indic ates the absen ce of BV. Total score 2: Indet ermin ate for BV. Addit ional clini skylar data shoul d be evalu ated to estab daphnie a diagn osis. Total score 3-6: Indic ates the prese nce of BV. This test was devel oped and its perfo rmanc e maria esther cteri stics deter mined by [facility]. It has not been clear ed or appro flakito by the Food and Drug Admin istra tion. The FDA has deter mined that such clear ance or appro ora is not neces hcoco. Not Available [facility] ([facility]) [address] [place], [address], 11/25/2019 06:09:05 11/20/1911/24/2019 bacte rial vagin osis panel , vagin al chlamydia trachomatis, MARQUES Negati ve negati ve Not Available [facility] ([facility]) [address] [place], [address], 11/25/2019 06:09:05 11/20/1911/24/2019 bacte rial vagin osis panel , vagin al neisseria gonorrhoeae, MARQUES Negati ve negati ve Not Available [facility] ([facility]) [address] [place], [address], 11/25/2019 06:09:05 11/20/1911/25/2019 bacte rial vagin osis panel , vagin al andria albicans, MARQUES Negati ve negati ve Not Available [facility] ([facility]) [address] [place], [address], 11/25/2019 06:09:05 11/20/1911/25/2019 bacte rial vagin osis panel , vagin al andria glabrata, MARQUES Positi ve negati ve abnormal Publi shed data demon strat e that up to 65% of Mulu da glabr petr ident ified in cases of vagin al mulu diasi s have decre ased susce ptibi lity to fluco nazol e. Not Available [facility] ([facility]) [address] [place], [address], 11/25/2019 06:09:05 11/20/1911/22/2019 cultu re, vagin al/re ctal, strep tococ cus group B strep gp B MARQUES Negati ve negati ve Cente rs for Disea se Contr ol and Preve ntion (CDC) and Ameri can Congr ess of Obste trici ans and Gynec ologi sts (ACOG ) guide lines for preve ntion of perin atal group B strep tococ skylar (GBS) disea se speci fy co-co llect ion of a vagin al and recta l swab speci men to maxim ize sensi tivit y of GBS detec tion. Per the CDC and ACOG, swabb ing both the lower vagin a and rectu m subst antia lly incre ases the yield of detec tion brandy red with sampl ing the vagin a alone . Penic illin G, ampic illin , or cefaz trish are indic ated for intra partu m proph ylaxi s of perin atal GBS colon izati on. Refle x susce ptibi lity testi ng shoul d be perfo rmed prior to use of clind amyci n only on GBS isola sarath from penic illin -constanza rgic women who are consi dered a high risk for anaph ylaxi s. Treat ment with vanco mycin witho ut addit ional testi ng is warra nted if resis tance to clind amyci n is noted . Not Available [facility] ([facility]) [address] [place], [address], 11/25/2019 06:09:05 11/20/19 20 11/23/2019 cultu re, urine urine culture, routine Final report Not Available [facility] ([facility]) [address] [place], [address], 11/25/2019 06:09:06 11/20/19 20 11/23/2019 cultu re, urine result 1 Commen t Cultu re shows less than 10,00 0 colon y formi ng units of bacte janet per marianela liter of urine . This colon y count is not gener ally consi dered to be clini lashonda signi ficjocelynn t. Not Available [facility] ([facility]) [address] [place], [address], 11/25/2019 06:09:06 Result Notes None recorded. Problems Name Problem SNOMED Code Status Onset Date Resolution Date Notes Provider Name and Address Organization Details Recorded Time Candidiasis of vagina 42657374 Active 2019 glabrata Ariel jackson, [facility] 0 13:09:07 Chronic idiopathic constipation 39268134 Active 2016 Ariel jackson, [facility] 7 13:49:15 Problem Notes None recorded. Procedures Surgical History Date Name Laterality Status Provider Name and Address Organization Details Recorded Time 11/20/2019 Date of Last Pap Smear completed Paola Ugarte MA [facility] 11/20/2019 11:01:26 Imaging Results None recorded. Procedure Notes None recorded. Medical Equipment None Reported. Allergies No known drug allergies Medications Name Sig Start Date Stop Date Status Note LastModified by Organization Details LastModified Time multivitami n tablet Take 1 tablet every day by oral route. 2019 active Not Available Not Available Not Avai lable cyclobenzap rine 10 mg tablet Take 1 tablet 3 times a day by oral route. 2019 active Not Available Not Available Not Avai lable fluconazole 150 mg tablet Take 1 tablet every day by oral route as directed for 1 day. 11/20 completed Not Available Not Available Not Available lisinopril 20 mg tablet Take 1 tablet every day by oral route. active Not Available Not Available No t Available terconazole 0.8 % vaginal cream Insert 1 applicato rful every day by vaginal route at bedtime for 3 days. 2019 active Not Available Not Available Not Avai lable lisinopril 20 mg-hydrochl orothiazide 25 mg tablet 11/20 completed Not Available Not Available Not Available Terazol 7 0.4 % vaginal cream Insert 1 applicato rful every day by vaginal route for 7 days. 11/20 completed Not Available Not Available Not Available Calcium with Vitamin D 600 mg-10 mcg (400 unit) tablet Take 1 tablet twice a day by oral route. 2019 active Not Available Not Available Not Avai lable calcium 600 mg (as carbonate)- vitamin D3 20 mcg (800 unit) tablet Take 1 tablet twice a day by oral route for 30 days. 11/20 completed Not Available Not Available Not Available Linzess 145 mcg capsule Take 1 capsule every day by oral route. 11/20 completed Not Available Not Available Not Available Vitals Date Recorded Body height Body mass index (BMI) Body weight Systolic blood pressure Diastolic blood pressure Provider Name and Address Organization Details Last Updated DateTime 11/20/2019 172.72 cm 24.5 kg/m2 75604.37 g 130 mm[Hg] 78 mm[Hg] Paola Ugarte MA [facility] 0 11:13:42 Date Recorded Body height Body mass index (BMI) Body weight Systolic blood pressure Diastolic blood pressure Provider Name and Address Organization Details Last Updated DateTime 06/28/2017 172.72 cm 24.6 kg/m2 79442.96 g 110 mm[Hg] 78 mm[Hg] Yenny Shine MA [facility] 7 13:17:05 Social History Question Answer Notes LastModified by Organizat ion Details LastModified Time Tobacco Smoking Status Never Smoker Yenny Shine MA null, [facility] 06/28/2017 13:26:31 Do You Have An Advance Directive? No Information not available 06/28/2017 What Is Your Level Of Alcohol Consumption? None Information not available 06/28/2017 Is Blood Transfusion Acceptable In An Emergency? No Information not available 06/28/2017 What Is Your Level Of Caffeine Consumption? None Information not available 06/28/2017 How Much Tobacco Do You Chew? None Information not available 06/28/2017 Are You Currently Employed? Yes Information not available 06/28/2017 What Type Of Diet Are You Following? VEGETARIAN Information not available 06/28/2017 Do You Or Have You Ever Used E-cigarettes Or Vape? 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 With Others Information not available 06/28/2017 What Was The Date Of Your Most Recent Tobacco Screening? 11/20/2019 Information not available 11/20/2019 How Many Children Do You Have? 2 Information not available 06/28/2017 Performs Monthly Self-breast Exam? No Information no t available 06/28/2017 Do You Use Protection During Sex? Always Information not available 06/28/2017 What Is Your Relationship Status? Information not available 06/28/2017 Seat Belts Used Routinely Yes Information not available 06/28/2017 Are You Sexually Active? Yes Information not available 06/28/2017 Do You Or Have You Ever Used Smokeless Tobacco? Never Used Smokeless Tobacco Information not available 11/20/2019 How Much Tobacco Do You Smoke? No Information not available 11/20/2019 General Stress Level Medium Information not available 06/28/2017 Do You Use Sunscreen Routinely? No Information not available 06/28/2017 On What Date Was Tobacco Cessation Counseling Provided? 11/20/2019 Information not available 11/20/2019 How Many Years Have You Smoked Tobacco? 0 Information not available 11/20/2019 Sex: Unknown Functional Status Question Answer Note LastModified by Organization D etails LastModified Time What is your exercise level? Moderate Information not available 06/28/2017 Mental Status None recorded. Family History Relationship Description Onset Age of this Age Resolved Age Notes LastModified by Organization Details LastModified Time Maternal Grandmother Diabetes mellitus Not available 2016 13:23:58 Maternal Grandmother Heart disease 80 Not available 2016 13:25:17 Maternal Grandmother Hypertensive disorder Not available 2016 13:25:30 Mother Diabetes mellitus Not available 2016 13:24:09 Mother Migraine Not available 06/28/2017 13:25:44 Maternal Grandfather Heart disease Not available 2016 13:24:43 Medical History No medical history recorded. Gynecological History Statement/Question Response Abnormal Pap Y Flow Moderate On BCP's at Conception? Y STIs/STDs N HPV Vaccine N Duration of Flow (days) 5 Age at Menarche 14 Current Control Method Condoms Age at First Child 21 Frequency of Cycle (Q days) 21 Sexually Active? Y Menses Monthly Y Date of Last Pap Smear 11/20/2019 Sexual Problems? N LMP Approximate Desired Control Method Condoms Obstetrics History GPAL:G 3 P 2 0 1 2 Type Value Multiple Births 0 Full Term 2 Induced 1 Spontaneous 0 Premature 0 Living 2 Ectopics 0 Total 3 Past Encounters Encounter ID Performer Location Encounter Start Date Encounter Closed Date Diagnosis/Indication Diagnosis SNOMED-CT Code Diagnosis ICD10 Code Diagnosis Note [id number] MD William Obrien (LURE [employer]KER) [address] [place] [address] [id number] 06/28/2017 12:31:32 06/29/2017 18:18:02 Gynecologic examination 89017938 Z01.419 Mammogram at 39 years of age. Exposure t o sexually transmissible disorder 820147413 Z20.2 Chronic id iopathic constipation 95871262 K59.04 Depressive disorder 3548 9007 F32.9 Patient scored an 18 out of 27, declines medical or psychother apy. [id number] MD William Obrien ([employer]URE MAK[employer]) [address] [place] [address] [id number] 11/20/2019 10:08:33 11/22/2019 14:22:55 Gynecologic examination 61157418 Z01.419 Mammogram at 39 years of age. Exposure t o sexually transmissible disorder 112463378 Z20.2 Screening mammography 24 930582 Z12.31 Acute urin ruel tract infection 128362123 N39.0 Paraverteb ral muscle spasm 16208061 M62.830 Health Concerns Section Related Observation LastModified by Organization Detai ls LastModified Time None Recorded Concern Status LastModified by Organization Details LastModified Time None Recorded Advance Directives Directive N: Payers Encounter Date Sequence Insurance Name Policy Number Policy Murphy Covered Member ID Murphy Member ID Guarantor Name 06/28/2017 1 [employer] (POS) Jude Calderon [id number] Jude Calderon 11/20/2019 1 [facility] - [employer] (PPO) Guille Ankita [id number] Jude Calderon Notes Date Note Type Note Provider Name and Address Organization Details Recorded Time 06/28/2017 text/html Annual GYNReport ed bypatient.Menstrua l cycle:Normal menses Urinary symptoms:No hematuria; No incontinence Vulva:No genital lesion Vagina:Normal vaginal discharge Breast:No breast pain; No breast lump; No nipple discharge Sexual complaints:No sexual complaints; No pain during intercourse; Normal libido Menopausal Symptoms:No menopausal symptoms; Normal vaginal lubrication Psychological symptoms:No depression; No anxiety; No PMDD 37 yo [place] female here today for [employer]. Ariel jackson [facility] 06/28/2017 17:41:44 11/20/2019 text/html Annual GYNReport ed bypatient.Menstrua l cycle:Normal menses Urinary symptoms:No hematuria; No incontinence Vulva:No genital lesion Vagina:Normal vaginal discharge Breast:No breast pain; No breast lump; No nipple discharge Sexual complaints:No sexual complaints; No pain during intercourse; Normal libido Menopausal Symptoms:No menopausal symptoms; Normal vaginal lubrication Psychological symptoms:No depression; No anxiety; No PMDD 39 yo [place] female here today for [employer] and complaints of dysuria and bilateral low back pain x 1 month. Pain 8/10, sharp and radiates to front. Better with drinking fluids, not felt since 11/19/19. UA neg. Ariel Smith renetta, [facility] 11/20/2019 18:49:17 OBGyn Episode Ob Episode Information Episode Created Date Number of Fetuses Patient Bloodtype Patient rh Status Prepregnancy Weight lbs Domestic Partner Domestic Partner Phone Father Name Chassis Inspector Status 11/20/19 20 1 CLOSED Fetus Data First Name Last Name Admitted to NICU Weight (g) Sex Living Outcome Pediatric Complications Fetus ID Race Codes Race Delivery Type , Induced [id number] Keith Calculation Initial Keith Date Initial Exam Date Initial Exam Provider Initial Ultrasound Date Last Menstrual Period Date Ultra Sound Weeks Gestation 0 Eighteen To Twenty Week Keith Update Ultra Sound Date Fundal Height At Umbil Quickening Date Ultra Sound Latest Weeks Gestation Final Keith Confirmed By Final Keith Confirmed Date Final Keith Date Ultra Sound Latest Days Gestation 0 0 Menstrual History Last Menstrual Date Menses Monthly On Bcp Conception Prior Menses Frequency Hcg Plus Date Menarche Onset Age Delivery Information Delivery Date Delivery Type Labor Anesthesia Weeks Gestation Incision Type Labor Labor Length Hrs Delivered By Post Complications Tubal Sterilization Discharge Date Comments 4 6 Discharge Information Feeding Method Contraceptive Method Maternal HG B and HCT Levels Ob Episode Information Episode Created Date Number of Fetuses Patient Bloodtype Patient rh Status Prepregnancy Weight lbs Domestic Partner Domestic Partner Phone Father Name Chassis Inspector Status 06/28/20 17 1 CLOSED Fetus Data First Name Last Name Admitted to NICU Weight (g) Sex Living Outcome Pediatric Complications Fetus ID Race Codes Race Delivery Type 2721.55 2 M Full Term [id number] Vaginal Keith Calculation Initial Keith Date Initial Exam Date Initial Exam Provider Initial Ultrasound Date Last Menstrual Period Date Ultra Sound Weeks Gestation 0 Eighteen To Twenty Week Keith Update Ultra Sound Date Fundal Height At Umbil Quickening Date Ultra Sound Latest Weeks Gestation Final Keith Confirmed By Final Keith Confirmed Date Final Keith Date Ultra Sound Latest Days Gestation 0 0 Menstrual History Last Menstrual Date Menses Monthly On Bcp Conception Prior Menses Frequency Hcg Plus Date Menarche Onset Age Delivery Information Delivery Date Delivery Type Labor Anesthesia Weeks Gestation Incision Type Labor Labor Length Hrs Delivered By Post Complications Tubal Sterilization Discharge Date Comments 4 General 40 false 2 baby b oy born in [place], [facility] Discharge Information Feeding Method Contraceptive Method Maternal HG B and HCT Levels Ob Episode Information Episode Created Date Number of Fetuses Patient Bloodtype Patient rh Status Prepregnancy Weight lbs Domestic Partner Domestic Partner Phone Father Name Chassis Inspector Status 06/28/20 17 1 CLOSED Fetus Data First Name Last Name Admitted to NICU Weight (g) Sex Living Outcome Pediatric Complications Fetus ID Race Codes Race Delivery Type 3175.14 4 M Full Term [id number] Vaginal Only Keith Calculation Initial Keith Date Initial Exam Date Initial Exam Provider Initial Ultrasound Date Last Menstrual Period Date Ultra Sound Weeks Gestation 0 Eighteen To Twenty Week Keith Update Ultra Sound Date Fundal Height At Umbil Quickening Date Ultra Sound Latest Weeks Gestation Final Keith Confirmed By Final Keith Confirmed Date Final Keith Date Ultra Sound Latest Days Gestation 0 0 Menstrual History Last Menstrual Date Menses Monthly On Bcp Conception Prior Menses Frequency Hcg Plus Date Menarche Onset Age Delivery Information Delivery Date Delivery Type Labor Anesthesia Weeks Gestation Incision Type Labor Labor Length Hrs Delivered By Post Complications Tubal Sterilization Discharge Date Comments 3 General 40 3 Discharge Information Feeding Method Contraceptive Method Maternal HG B and HCT Levels
[2025-03-15 11:23] LABS: Basophils Absolute Auto 0.1 K/mm3 (0.0-0.1); Basophils Percent Auto 1.1 % (0.2-1.2); Eosinophils Absolute Auto 0.1 K/mm3 (0-0.3); Eosinophils Percent Auto 2.4 % (0-4.4); Hematocrit 33.2 % (37.0-47.0); Hemoglobin 9.4 g/dL (12.0-15.0); Immature Granulocyte Absolute 0.02 K/mm3 (0.00-0.031); Immature Granulocyte Percent A 0.4 % (0-0.5); Lymphocytes Absolute Auto 2.23 K/mm3 (0.9-3.2); Lymphocytes Percent Auto 40.5 % (18.3-44.2); Mean Corpuscular HGB Conc 28.3 g/dl (32-36); Mean Corpuscular Hemoglobin 23.4 pg (26-34); Mean Corpuscular Volume 82.8 fl (80-100); Mean Platelet Volume 10.6 fl (7.4-10.4); Monocytes Absolute Auto 0.5 K/mm3 (0.1-0.6); Monocytes Percent Auto 8.2 % (2.6-8.5); Neutrophils Absolute Auto 2.6 K/mm3 (1.3-6.7); Neutrophils Percent Auto 47.4 % (45.5-73.1); Platelet Count Result 356 k/mm3 (150-375); Red Blood Count 4.01 M/mm3 (4.2-5.4); Red Cell Distribution Width 17.8 % (11.5-14.5); White Blood Count 5.5 K/mm3 (4.5-10.0)
[2025-03-15 11:23] LABS: Alanine Aminotransferase 27 U/L (6-35); Albumin Level 4.6 g/dL (3.5-5.1); Alkaline Phosphatase 48 U/L (38-126); Anion Gap 8 mmol/L (4-12); Aspartate Amino Transferase 42 U/L (14-36); Bilirubin,Total 0.4 mg/dL (0.2-1.3); Blood Urea Nitrogen 9 mg/dL (7-17); Calcium 9.3 mg/dL (8.4-10.2); Carbon Dioxide 22 mmol/L (22-30); Chloride 107 mmol/L (98-107); Estimated Glomerular Filt Rate > 60; Glucose 86 mg/dL (65-110); Potassium 4.1 mmol/L (3.4-5.0); Sodium 137 mmol/L (137-145)
[2025-03-15 11:24] LABS: Beta HCG Quantitative < 2.39 mIU/ML
[2025-03-15 11:42] LABS: INR 0.9
[2025-03-15 11:49] LABS: Anisocytosis 1+; Hypochromasia 1+; Platelet Estimate Adequate (Adequate); Schistocytes None Seen
--- NOTE | 2025-03-15 11:53 | ED_ITS ---
HPI - Female Genitourinary General Chief complaint: Vaginal Bleeding Stated complaint: vag bleed Time Seen by Provider: 03/15/25 10:13 Source: patient Mode of arrival: ambulatory Limitations: no limitations History of Present Illness HPI Narrative: Patient is a 45-year-old female who presents the ED with report of vaginal bleeding. Patient reports she typically has heavy menstrual cycles. She currently has an IUD. She had her normal menstrual cycle 02/12-02/19. She then developed bleeding again on 02/26. States it was heavy for several days, lightened up, then became heavy again today. She has intermittently been passing large blood clots. Reports some lower abdominal cramping. She saw her OBGYN, Dr. Smith, yesterday, was referred for outpatient pelvic US, which is scheduled later this month. Denies nausea, vomiting, dizziness, lightheadedness, fevers. 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 All systems reviewed & are unremarkable except as noted in HPI and below PMFSH Past Medical History Medical History Encounter for initial insertion of intrauterine contraceptive device Thyroid disease Hypertension Surgical History Surgical History H/O gynecological procedure Mirena IUD insertion 04/28/23 Family History Family History Unknown No problems noted. Father Hypertension Mother Hypertension Diabetes mellitus Social History Social History Social History: The patient is and has 2 sons. 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 She does not use tobacco marijuana alcohol or illicit drugs. Code status full code Smoking status: Never smoker Alcohol intake: never Substance use: never Substance use type: does not use Lack of Transportation: No Lack of Food: Never True Current Housing: Decline to Answer Concerned About Future Housing: No Difficulty Paying Gas/Electric Bills: No Difficulty Paying for Meds: No Currently Unemployed: No Education: High School Diploma/GED Difficulty w/ Childcare or Family Care: No Living arrangements: with family Gender identity (if verbalized by the patient): Female Sexual Orientation (if Verbalized by the Patient): Straight or Heterosexual Spiritual care concerns: No Exam 2 Narrative: GENERAL: Well appearing, well-nourished, non-toxic, in no acute distress. HEAD: Normocephalic, atraumatic. RESPIRATORY: Airway patent, respirations nonlabored. Clear to auscultation bilaterally, no rales, rhonchi, wheezing. CARDIOVASCULAR: Regular rate and rhythm ABDOMINAL: Soft, minimal tenderness throughout lower abdomen, nondistended. Normoactive BS. PELVIC: Normal external genitalia. Mild amount of dark red vaginal blood in vault. Normal-appearing cervix. No significant clots. No evidence of hemorrhage or pooling of fluid. MUSCULOSKELETAL: Moves all extremities. No gross deformities. SKIN: Warm, dry, normal color. NEURO: A&O X3. Speech clear. PSYCHIATRIC: Appropriate mood and affect. Normal interaction. Course Vital Signs Vital signs: Vital Signs Temperature 98.2 F 03/15/25 10:10 Pulse Rate 88 03/15/25 10:10 Respiratory Rate 16 03/15/25 10:10 Blood Pressure 141/94 H 03/15/25 10:10 Pulse Oximetry 100 03/15/25 10:10 Oxygen Delivery Room Air 03/15/25 10:10 Temperature 98.2 F 03/15/25 10:10 Pulse Rate 74 03/15/25 10:54 Respiratory Rate 16 03/15/25 10:10 Blood Pressure 156/108 H 03/15/25 10:54 Pulse Oximetry 100 03/15/25 10:10 Oxygen Delivery Room Air 03/15/25 10:10 MDM - Female Genitourinary MDM Narrative Medical decision making narrative: Patient presented to ED with abnormal vaginal bleeding. History of heavy cycles, has been bleeding persistently since 02/26/25. Passing large clots. Technically should be on normal menstrual cycle currently. Vital signs are stable upon arrival. No evidence of hemodynamic instability. Pelvic exam was performed, mild amount of bleeding, no evidence of hemorrhage or pooling of fluid. Cbc without leukocytosis. Does show anemia with hemoglobin at 9.4. This does appear consistent with previous records. Normocytic with an MCV of 82. Platelets within normal range. is negative. UA w/ small amount of blood, no signs of infection. Pelvic ultrasound was obtained and showing uterine fibroids, simple left-sided ovarian cyst. Normal vascular blood flow, no evidence of torsion. Will discuss with doctor of chiropractic. Discussed case with Dr. Smith, obgyn, advised to start patient on sprintec oral BCP, OK to give with mirena IUD. Have close f/u in office. Advised if bleeding becomes heavier, to call the office and they can taper medications. Discussed these recommendations with patient. She has otherwise remained stable throughout ED stay. Feel she is safe for discharge home with outpatient follow- up. Discussed strict return precautions. Patient in agreement with plan. She feels comfortable going home. Discharged in stable condition. Medical Records Attestation: I reviewed the patient's medical records. Lab Data Attestation: I reviewed the patient's lab results. 03/15/25 11:13 03/15/25 10:34 Labs: Lab Results 03/15/25 03/15/25 03/15/25 Range/Units 10:34 11:13 13:54 WBC 5.5 (4.5-10.0) K/mm3 RBC 4.01 L (4.2-5.4) M/mm3 Hgb 9.4 L (12.0-15.0) g/dL Hct 33.2 L (37.0-47.0) % MCV 82.8 (80-100) fl MCH 23.4 L (26-34) pg MCHC 28.3 L (32-36) g/dl RDW 17.8 H (11.5-14.5) % Plt Count 356 (150-375) k/mm3 MPV 10.6 H (7.4-10.4) fl Immature Gran % (Auto) 0.4 (0-0.5) % Neut % (Auto) 47.4 (45.5-73.1) % Lymph % (Auto) 40.5 (18.3-44.2) % [place] % (Auto) 8.2 (2.6-8.5) % Eos % (Auto) 2.4 (0-4.4) % Baso % (Auto) 1.1 (0.2-1.2) % Lymph # (Auto) 2.23 (0.9-3.2) K/mm3 [place] # (Auto) 0.5 (0.1-0.6) K/mm3 Eos # (Auto) 0.1 (0-0.3) K/mm3 Baso # (Auto) 0.1 (0.0-0.1) K/mm3 Abs Immat Gran (auto) 0.02 (0.00-0.031) K/mm3 Absolute Neuts (auto) 2.6 (1.3-6.7) K/mm3 Absolute Nucleated RBC 0.000 (0.0-0.012) K/mm3 Band Neutrophils % Not Reportable Nucleated RBC % 0.0 (0.0-0.2) % Platelet Estimate Adequate (Adequate) Hypochromasia 1+ Anisocytosis 1+ Schistocytes None seen PT 13.0 (11.1-14.7) Seconds INR 0.9 APTT 28.0 (22.3-36.8) Seconds Sodium 137 (137-145) mmol/L Potassium 4.1 (3.4-5.0) mmol/L Chloride 107 (98-107) mmol/L Carbon Dioxide 22 (22-30) mmol/L Anion Gap 8 (4-12) mmol/L BUN 9 (7-17) mg/dL Creatinine 0.64 L (0.7-1.0) mg/dL Estim Creat Clear Calc Not Reportable Estimated GFR > 60 (59 - ) Glucose 86 (65-110) mg/dL Calcium 9.3 (8.4-10.2) mg/dL Total Bilirubin 0.4 (0.2-1.3) mg/dL AST 42 H (14-36) U/L ALT 27 (6-35) U/L Alkaline Phosphatase 48 (38-126) U/L Total Protein 8.0 (6.3-8.2) g/dL Albumin 4.6 (3.5-5.1) g/dL Beta HCG, Quant < 2.39 mIU/ML Urine Color Yellow (Yellow) Urine Appearance Clear (Clear) Urine pH 5.0 (5.0-9.0) Ur Specific [place] 1.006 (1.001-1.035) Urine Protein Negative (Negative) mg/dL Urine Glucose (UA) Negative (Negative) mg/dL Urine Ketones Negative (Negative) mg/dL Ur Blood (Man) 2+ H (Negative) Urine Nitrate Negative (Negative) Urine Bilirubin Negative (Negative) Urine Urobilinogen 0.2 (<2.0) mg/dL Leukocyte Esterase Rfl Negative (Negative) DONNA/UL Urine RBC 21-50 H (0-2) /hpf Urine WBC 0-5 (0-3) /hpf Ur Squamous Epith Cells None seen (Few) /hpf Urine Bacteria None seen /hpf Urine Casts 0-2 POC Urine HCG, Qual (Negative) Blood Type O Positive Antibody Screen Negative 03/15/25 Range/Units 13:57 WBC (4.5-10.0) K/mm3 RBC (4.2-5.4) M/mm3 Hgb (12.0-15.0) g/dL Hct (37.0-47.0) % MCV (80-100) fl MCH (26-34) pg MCHC (32-36) g/dl RDW (11.5-14.5) % Plt Count (150-375) k/mm3 MPV (7.4-10.4) fl Immature Gran % (Auto) (0-0.5) % Neut % (Auto) (45.5-73.1) % Lymph % (Auto) (18.3-44.2) % [place] % (Auto) (2.6-8.5) % Eos % (Auto) (0-4.4) % Baso % (Auto) (0.2-1.2) % Lymph # (Auto) (0.9-3.2) K/mm3 [place] # (Auto) (0.1-0.6) K/mm3 Eos # (Auto) (0-0.3) K/mm3 Baso # (Auto) (0.0-0.1) K/mm3 Abs Immat Gran (auto) (0.00-0.031) K/mm3 Absolute Neuts (auto) (1.3-6.7) K/mm3 Absolute Nucleated RBC (0.0-0.012) K/mm3 Band Neutrophils % Nucleated RBC % (0.0-0.2) % Platelet Estimate (Adequate) Hypochromasia Anisocytosis Schistocytes PT (11.1-14.7) Seconds INR APTT (22.3-36.8) Seconds Sodium (137-145) mmol/L Potassium (3.4-5.0) mmol/L Chloride (98-107) mmol/L Carbon Dioxide (22-30) mmol/L Anion Gap (4-12) mmol/L BUN (7-17) mg/dL Creatinine (0.7-1.0) mg/dL Estim Creat Clear Calc Estimated GFR (59 - ) Glucose (65-110) mg/dL Calcium (8.4-10.2) mg/dL Total Bilirubin (0.2-1.3) mg/dL AST (14-36) U/L ALT (6-35) U/L Alkaline Phosphatase (38-126) U/L Total Protein (6.3-8.2) g/dL Albumin (3.5-5.1) g/dL Beta HCG, Quant mIU/ML Urine Color (Yellow) Urine Appearance (Clear) Urine pH (5.0-9.0) Ur Specific [place] (1.001-1.035) Urine Protein (Negative) mg/dL Urine Glucose (UA) (Negative) mg/dL Urine Ketones (Negative) mg/dL Ur Blood (Man) (Negative) Urine Nitrate (Negative) Urine Bilirubin (Negative) Urine Urobilinogen (<2.0) mg/dL Leukocyte Esterase Rfl (Negative) DONNA/UL Urine RBC (0-2) /hpf Urine WBC (0-3) /hpf Ur Squamous Epith Cells (Few) /hpf Urine Bacteria /hpf Urine Casts POC Urine HCG, Qual Negative (Negative) Blood Type Antibody Screen Imaging Data Attestation: I personally reviewed and interpreted this imaging study as follows: Radiologist's impression: ITS Impressions Pelvic/Transvag US 03/15/25 12:42 IMPRESSION: Uterine fibroids. Simple cyst in the left ovary. Otherwise, normal pelvic ultrasound. Discharge Plan Discharge Clinical Impression: Abnormal uterine bleeding Anemia Qualifiers: Anemia type: unspecified type Qualified Code(s): D64.9 - Anemia, unspecified Uterine fibroid Qualifiers: Uterine leiomyoma location: unspecified location Qualified Code(s): D25.9 - Leiomyoma of uterus, unspecified Patient Disposition: Home Condition: Stable Instructions: Antibiotic Form, Abnormal (Dysfunctional) Uterine Bleeding (ED), Dysmenorrhea (ED) Additional Instructions: Take oral control pill as prescribed. Continue Tylenol and ibuprofen as needed for cramping. Continue to monitor bleeding. Follow-up with OBGYN for further evaluation. If bleeding becomes significantly heavier, contact OBGYN office first for recommendations on medications. Return to the ED if you experience severe bleeding, unable to keep down food or drink, severe pain, fevers, passing out, severe dizziness, or any other symptoms of concern. 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
[2025-03-15 13:59] LABS: BEDSIDEPREGUCG Negative (Negative)
[2025-03-15 14:05] LABS: Add Urine Microscopic? YES; Appearance Urine Clear (Clear); Bacteria Urine None Seen /hpf; Bilirubin Urine Negative (Negative); Blood Urine 2+ (Negative); Color Urine Yellow (Yellow); Glucose Urine UA Negative (Negative); Ketones Urine Negative (Negative); Leukocyte Esterase Ur Negative LEU/UL (Negative); Nitrate Urine Negative (Negative); Non Pathogenic Casts 0-2; Protein Urine Negative (Negative); RBC Urine 21-50 /hpf (0-2); Specific Grav Ur 1.006 (1.001-1.035); Squamous Epithelial Cell Urine None Seen /hpf (Few); Urobilinogen Urine 0.2 mg/dL (<2.0); WBC Urine 0-5 /hpf (0-3)
== END 2025-03-15 14:31 | disposition home or self-care (01) ==
PROVIDERS: Emergency Provider Physician Assistant; PCP Internal Medicine
DX: N93.9 Abnormal uterine and vaginal bleeding, unspecified (principal); D64.9 Anemia, unspecified; D25.9 Leiomyoma of uterus, unspecified; Z97.5 Presence of (intrauterine) contraceptive device; I10 Essential (primary) hypertension; E07.9 Disorder of thyroid, unspecified
CPT/HCPCS: 36415; 76830; 76856; 80053; 81001; 81025; 84702; 85025; 85610; 85730; 86850; 86900; 86901; 99284